=== PATIENT | male | born 1985 | race Caucasian/White ===

== ENCOUNTER 2020-08-25 16:19 | Inpatient (IN) ==
[2020-08-25 17:08] LABS: Basophils # 0.1 K/mcL (0.0-0.2); Basophils % 0.3 %; Eosinophils # 0.1 K/mcL (0.0-0.6); Eosinophils % 0.6 %; Hematocrit 45.9 % (37.5-50.1); Hemoglobin 14.8 g/dL (12.9-16.9); Immature Granulocytes % 0.5 % (0-4); Lymphocytes # 1.4 K/mcL (0.6-4.6); Lymphocytes % 8.8 %; Mean Corpuscular HGB Conc 32.2 g/dL (31.6-35.5); Mean Corpuscular Hemoglobin 28.7 pg (28.0-33.3); Mean Platelet Volume 12.4 fL (9.4-12.4); Monocytes # 0.9 K/mcL (0.0-1.3); Monocytes % 5.9 %; Neutrophils # 13.2 K/mcL (1.6-8.9); Platelet Count 237 K/mcL (140-400); Red Blood Count 5.16 M/mcL (4.19-5.50); Segmented Neutrophils % 83.9 %; White Blood Count 15.7 K/mcL (4.3-11.1)
[2020-08-25 17:23] LABS: INR 1.3; Prothrombin Time 14.5 Seconds (9.4-12.1)
[2020-08-25 17:26] LABS: Activated Partial Thrombo Time 26.5 Seconds (26.0-36.0)
[2020-08-25 18:35] LABS: VBG HCO3 30 mEq/L (21-27); VBG PCO2 54 mmHg (41-51); VBG PH 7.35 pH Units (7.32-7.42); VBG PO2 87 mmHg (25-50)
[2020-08-25 18:49] LABS: Alanine Aminotransferase 29 Units/L (7-52); Albumin 4.3 g/dL (3.5-5.7); Albumin/Globulin Ratio 1.3 (1.1-2.2); Alkaline Phosphatase 70 Units/L (34-104); Aspartate Amino Transferase 24 Units/L (13-39); BUN/Creatinine Ratio 11 (6-26); Bilirubin,Direct 0.2 mg/dL (0.0-0.2); Bilirubin,Indirect 0.7 mg/dL (0.0-1.0); Bilirubin,Total 0.9 mg/dL (0.3-1.0); Blood Urea Nitrogen 13 mg/dL (6-20); Calcium 9.2 mg/dL (8.6-10.3); Carbon Dioxide 28 mEq/L (23-29); Chloride 103 mEq/L (98-107); Globulin 3.3 g/dL (2.4-3.5); Glucose 124 mg/dL (70-105); Magnesium 2.1 mg/dL (1.6-2.6); Osmolality,Calculated 294 (280-300); Phosphorous 3.5 mg/dL (2.7-4.5); Potassium 3.9 mEq/L (3.5-5.1); Sodium 141 mEq/L (136-145); Total Protein 7.6 g/dL (6.4-8.9); eGFR For African Americans > 60 (> 60); eGFR For Non-African Americans > 60 (> 60)
[2020-08-25] MEDS ORDERED: *HR* Labetalol 20 MG/4 ML SYRINGE IVP ONE (18:50)
[2020-08-25 19:10] LABS: Bilirubin,Urine Negative (Negative); Blood,Urine Moderate (Negative); Clarity,Urine Clear (Clear); Color,Urine Yellow (Yellow); Glucose,Urine (UA) Normal (Normal); Hyaline Casts,Urine Many per lpf (None Seen); Ketones,Urine Negative (Negative); Leukocyte Esterase,Urine Negative (Negative); Mucus,Urine Few per lpf (None-Few); Nitrite,Urine Negative (Negative); PH,Urine 6.5 pH Units (5.0-8.0); Protein,Urine >=600 mg/dL (Neg-Trace); RBC,Urine 0-3 per hpf (0-3); Specific Gravity,Urine 1.028 (1.010-1.025); Squamous Epithelial Cell,Urine Few per hpf (None-Few); Urobilinogen,Urine Normal (Normal)
[2020-08-25] MEDS ORDERED: Perflutren Lipid Microsphere 1.3 ML in 0.9 % Sodium Chloride 8.7 ML IVP PRN (19:10)
[2020-08-25 19:34] LABS: Adenovirus Not Detected (Not Detect); Bordetella Pertussis Not Detected (Not Detect); Chlamydophila pneumoniae Not Detected (Not Detect); Coronavirus 229E Not Detected (Not Detect); Coronavirus HKU1 Not Detected (Not Detect); Coronavirus NL63 Not Detected (Not Detect); Coronavirus OC43 Not Detected (Not Detect); Human Metapneumovirus Not Detected (Not Detect); Human Rhinovirus/Enterovirus DETECTED (Not Detect); Influenza A Subtype 2009 H1 Not Detected (Not Detect); Influenza B Not Detected (Not Detect); Mycoplasma pneumoniae Not Detected (Not Detect); Parainfluenza Virus 1 Not Detected (Not Detect); Parainfluenza Virus 2 Not Detected (Not Detect); Parainfluenza Virus 3 Not Detected (Not Detect); Parainfluenza Virus 4 Not Detected (Not Detect); Respiratory Syncytial Virus Not Detected (Not Detect); SARS-CoV-2 Not Detected (Not Detect)
[2020-08-25] MEDS ORDERED: Naloxone 0.4 MG/ML INJ IVP PRN (20:31)
[2020-08-25] MEDS ORDERED: Ondansetron 4 MG/2 ML VIAL IVP PRN (20:31)
[2020-08-25] MEDS ORDERED: niCARdipine 20 MG/200 ML MLS IVC SCH (21:45)
[2020-08-25] MEDS ORDERED: Furosemide 40 MG/4 ML VIAL IVP ONE (22:33)
[2020-08-26] MEDS ORDERED: Aspirin Enteric Coated 325 MG Tablet PO ONE (01:32)
[2020-08-26 04:08] LABS: Basophils # 0.1 K/mcL (0.0-0.2); Basophils % 0.4 %; Eosinophils # 0.1 K/mcL (0.0-0.6); Eosinophils % 0.7 %; Hematocrit 42.2 % (37.5-50.1); Immature Granulocytes % 0.5 % (0-4); Lymphocytes # 1.5 K/mcL (0.6-4.6); Lymphocytes % 10.4 %; Mean Corpuscular Hemoglobin 28.1 pg (28.0-33.3); Mean Corpuscular Volume 90.6 fL (83.0-100.0); Mean Platelet Volume 11.6 fL (9.4-12.4); Monocytes # 1.2 K/mcL (0.0-1.3); Monocytes % 8.6 %; Neutrophils # 11.3 K/mcL (1.6-8.9); Platelet Count 234 K/mcL (140-400); Red Blood Count 4.66 M/mcL (4.19-5.50); Red Cell Distribution Width 14.7 % (11.5-14.5); Segmented Neutrophils % 79.4 %; White Blood Count 14.3 K/mcL (4.3-11.1)
[2020-08-26 04:09] LABS: Hemoglobin 13.1 g/dL (12.9-16.9)
[2020-08-26 04:15] LABS: INR 1.4; Prothrombin Time 15.9 Seconds (9.4-12.1)
[2020-08-26 04:30] LABS: Alanine Aminotransferase 21 Units/L (7-52); Albumin 3.6 g/dL (3.5-5.7); Albumin/Globulin Ratio 1.3 (1.1-2.2); Alkaline Phosphatase 54 Units/L (34-104); Aspartate Amino Transferase 20 Units/L (13-39); BUN/Creatinine Ratio 13 (6-26); Blood Urea Nitrogen 12 mg/dL (6-20); Calcium 8.6 mg/dL (8.6-10.3); Carbon Dioxide 28 mEq/L (23-29); Chloride 103 mEq/L (98-107); Chol/HDL Ratio 6.3 (0-4.9); Cholesterol 138 mg/dL (< 200); Globulin 2.7 g/dL (2.4-3.5); Glucose 107 mg/dL (70-105); HDL Cholesterol 22 mg/dL (40-59); LDL Cholesterol,Calculated 95 mg/dL (< 100); Magnesium 1.9 mg/dL (1.6-2.6); Osmolality,Calculated 290 (280-300); Potassium 3.7 mEq/L (3.5-5.1); Sodium 140 mEq/L (136-145); Total Protein 6.3 g/dL (6.4-8.9); Triglycerides 107 mg/dL (< 150); eGFR For African Americans > 60 (> 60); eGFR For Non-African Americans > 60 (> 60)
[2020-08-26] MEDS: *HR* Heparin 5,000 UNIT/ML VIAL SQ SCH ×3 (06:34→20:47)
[2020-08-26] MEDS: Aspirin Enteric Coated 81 MG Tablet PO SCH (07:58)
[2020-08-26] MEDS ORDERED: lisinopriL 10 MG TABLET PO SCH ×2 (09:00→21:00)
[2020-08-26 09:13] LABS: Amphetamine Screen,Urine Negative ng/mL (Cutoff=1000); Barbiturate Screen,Urine Negative ng/mL (Cutoff=200); Benzodiazepines Screen,Urine Negative ng/mL (Cutoff=200); Cannabinoid Screen,Urine Positive ng/mL (Cutoff = 50); Cocaine Screen,Urine Negative ng/mL (Cutoff= 300); Opiate Screen,Urine Negative ng/mL (Cutoff=300); Phencyclidine Screen,Urine Negative ng/mL (Cutoff=25)
[2020-08-26] MEDS ORDERED: lisinopriL 10 MG TABLET PO ONE (10:25)
[2020-08-26] MEDS ORDERED: amLODIPine 5 MG TABLET PO SCH (10:30)
[2020-08-26] MEDS: Furosemide 40 MG/4 ML VIAL IVP SCH ×2 (11:49→20:47)
[2020-08-26] MEDS: hydrALAZINE 25 MG TABLET PO SCH ×2 (11:50→15:22)
[2020-08-27] MEDS: hydrALAZINE 25 MG TABLET PO SCH ×3 (01:02→17:37)
[2020-08-27] MEDS: *HR* Heparin 5,000 UNIT/ML VIAL SQ SCH ×3 (06:53→21:37)
[2020-08-27] MEDS: Furosemide 40 MG/4 ML VIAL IVP SCH ×2 (08:22→21:37)
[2020-08-27] MEDS: Aspirin Enteric Coated 81 MG Tablet PO SCH (08:22)
[2020-08-27 08:40] LABS: Basophils # 0.1 K/mcL (0.0-0.2); Basophils % 0.4 %; Eosinophils # 0.3 K/mcL (0.0-0.6); Hematocrit 41.7 % (37.5-50.1); Immature Granulocytes % 0.5 % (0-4); Lymphocytes # 1.4 K/mcL (0.6-4.6); Lymphocytes % 11.7 %; Mean Corpuscular HGB Conc 31.2 g/dL (31.6-35.5); Mean Corpuscular Hemoglobin 28.2 pg (28.0-33.3); Mean Corpuscular Volume 90.5 fL (83.0-100.0); Mean Platelet Volume 11.8 fL (9.4-12.4); Monocytes # 1.1 K/mcL (0.0-1.3); Monocytes % 8.6 %; Neutrophils # 9.4 K/mcL (1.6-8.9); Platelet Count 223 K/mcL (140-400); Red Blood Count 4.61 M/mcL (4.19-5.50); Segmented Neutrophils % 76.8 %; White Blood Count 12.3 K/mcL (4.3-11.1)
[2020-08-27 08:52] LABS: BUN/Creatinine Ratio 13 (6-26); Blood Urea Nitrogen 12 mg/dL (6-20); Carbon Dioxide 33 mEq/L (23-29); Chloride 102 mEq/L (98-107); Glucose 104 mg/dL (70-105); Osmolality,Calculated 288 (280-300); Potassium 3.6 mEq/L (3.5-5.1); Sodium 139 mEq/L (136-145); eGFR For African Americans > 60 (> 60); eGFR For Non-African Americans > 60 (> 60)
[2020-08-27 10:13] LABS: Bilirubin,Urine Negative (Negative); Blood,Urine Negative (Negative); Clarity,Urine Clear (Clear); Color,Urine Colorless (Yellow); Glucose,Urine (UA) Normal (Normal); Ketones,Urine Negative (Negative); Leukocyte Esterase,Urine Negative (Negative); Nitrite,Urine Negative (Negative); Protein,Urine Negative (Neg-Trace); Specific Gravity,Urine 1.006 (1.010-1.025); Urobilinogen,Urine Normal (Normal)
[2020-08-27] MEDS: lisinopriL 20 MG TABLET PO SCH ×2 (10:24→21:37)
[2020-08-27] MEDS ORDERED: hydrALAZINE 25 MG TABLET PO ONE (11:18)
[2020-08-27] MEDS: cloNIDine HCL 0.1 MG TABLET PO SCH ×2 (12:34→21:37)
[2020-08-28] MEDS: hydrALAZINE 25 MG TABLET PO SCH ×3 (00:42→15:56)
[2020-08-28 04:43] LABS: Basophils # 0.1 K/mcL (0.0-0.2); Basophils % 0.4 %; Eosinophils # 0.5 K/mcL (0.0-0.6); Eosinophils % 3.6 %; Hemoglobin 13.4 g/dL (12.9-16.9); Immature Granulocytes % 0.6 % (0-4); Lymphocytes # 1.8 K/mcL (0.6-4.6); Lymphocytes % 13.2 %; Mean Corpuscular HGB Conc 31.2 g/dL (31.6-35.5); Mean Corpuscular Hemoglobin 28.5 pg (28.0-33.3); Mean Corpuscular Volume 91.5 fL (83.0-100.0); Mean Platelet Volume 11.8 fL (9.4-12.4); Monocytes # 1.3 K/mcL (0.0-1.3); Neutrophils # 10.2 K/mcL (1.6-8.9); Platelet Count 262 K/mcL (140-400); Red Cell Distribution Width 15.2 % (11.5-14.5); Segmented Neutrophils % 73.2 %
[2020-08-28 05:01] LABS: BUN/Creatinine Ratio 13 (6-26); Blood Urea Nitrogen 13 mg/dL (6-20); Calcium 9.1 mg/dL (8.6-10.3); Carbon Dioxide 34 mEq/L (23-29); Chloride 102 mEq/L (98-107); Glucose 104 mg/dL (70-105); Osmolality,Calculated 292 (280-300); Sodium 141 mEq/L (136-145); eGFR For African Americans > 60 (> 60); eGFR For Non-African Americans > 60 (> 60)
[2020-08-28] MEDS: *HR* Heparin 5,000 UNIT/ML VIAL SQ SCH ×3 (05:45→20:51)
[2020-08-28] MEDS: Aspirin Enteric Coated 81 MG Tablet PO SCH (09:02)
[2020-08-28] MEDS: lisinopriL 20 MG TABLET PO SCH ×2 (09:02→20:50)
[2020-08-28] MEDS: Furosemide 40 MG/4 ML VIAL IVP SCH ×2 (09:02→20:52)
[2020-08-28] MEDS: cloNIDine HCL 0.1 MG TABLET PO SCH ×2 (09:02→20:50)
[2020-08-29] MEDS: hydrALAZINE 25 MG TABLET PO SCH ×3 (00:22→15:12)
[2020-08-29 02:03] LABS: Basophils # 0.1 K/mcL (0.0-0.2); Basophils % 0.4 %; Eosinophils # 0.5 K/mcL (0.0-0.6); Eosinophils % 3.8 %; Hematocrit 41.8 % (37.5-50.1); Hemoglobin 12.9 g/dL (12.9-16.9); Immature Granulocytes % 0.4 % (0-4); Lymphocytes # 1.8 K/mcL (0.6-4.6); Lymphocytes % 14.4 %; Mean Corpuscular HGB Conc 30.9 g/dL (31.6-35.5); Mean Corpuscular Hemoglobin 28.2 pg (28.0-33.3); Mean Corpuscular Volume 91.3 fL (83.0-100.0); Mean Platelet Volume 11.4 fL (9.4-12.4); Monocytes # 1.2 K/mcL (0.0-1.3); Monocytes % 9.9 %; Neutrophils # 8.6 K/mcL (1.6-8.9); Platelet Count 248 K/mcL (140-400); Red Blood Count 4.58 M/mcL (4.19-5.50); Segmented Neutrophils % 71.1 %; White Blood Count 12.1 K/mcL (4.3-11.1)
[2020-08-29 02:18] LABS: Alanine Aminotransferase 15 Units/L (7-52); Albumin 3.5 g/dL (3.5-5.7); Albumin/Globulin Ratio 1.3 (1.1-2.2); Alkaline Phosphatase 51 Units/L (34-104); Aspartate Amino Transferase 13 Units/L (13-39); BUN/Creatinine Ratio 15 (6-26); Bilirubin,Total 0.6 mg/dL (0.3-1.0); Blood Urea Nitrogen 14 mg/dL (6-20); Calcium 8.8 mg/dL (8.6-10.3); Carbon Dioxide 33 mEq/L (23-29); Chloride 100 mEq/L (98-107); Globulin 2.8 g/dL (2.4-3.5); Glucose 97 mg/dL (70-105); Osmolality,Calculated 288 (280-300); Potassium 3.9 mEq/L (3.5-5.1); Sodium 139 mEq/L (136-145); Total Protein 6.3 g/dL (6.4-8.9); eGFR For African Americans > 60 (> 60); eGFR For Non-African Americans > 60 (> 60)
[2020-08-29 05:49] LABS: ABG Base Excess 6 mEq/L (-2 to 3); ABG HCO3 33 mEq/L (21-27); ABG Oxygen Saturation 89 % (95-98); ABG PCO2 54 mmHg (35-45); ABG PO2 58 mmHg (85-104); ABG TCO2 35 mEq/L (20-26)
[2020-08-29] MEDS: *HR* Heparin 5,000 UNIT/ML VIAL SQ SCH ×3 (08:33→20:27)
[2020-08-29] MEDS: Furosemide 40 MG/4 ML VIAL IVP SCH ×2 (08:33→20:27)
[2020-08-29] MEDS: Aspirin Enteric Coated 81 MG Tablet PO SCH (08:34)
[2020-08-29] MEDS: cloNIDine HCL 0.1 MG TABLET PO SCH ×2 (08:34→20:26)
[2020-08-29] MEDS: lisinopriL 20 MG TABLET PO SCH ×2 (08:34→20:27)
[2020-08-30] MEDS: hydrALAZINE 25 MG TABLET PO SCH ×4 (01:29→23:18)
[2020-08-30 03:51] LABS: Basophils # 0.1 K/mcL (0.0-0.2); Basophils % 0.5 %; Eosinophils # 0.4 K/mcL (0.0-0.6); Hematocrit 41.6 % (37.5-50.1); Hemoglobin 12.7 g/dL (12.9-16.9); Immature Granulocytes % 0.5 % (0-4); Lymphocytes % 18.3 %; Mean Corpuscular HGB Conc 30.5 g/dL (31.6-35.5); Mean Corpuscular Hemoglobin 27.4 pg (28.0-33.3); Mean Corpuscular Volume 89.8 fL (83.0-100.0); Mean Platelet Volume 11.8 fL (9.4-12.4); Monocytes # 1.3 K/mcL (0.0-1.3); Monocytes % 11.4 %; Neutrophils # 7.2 K/mcL (1.6-8.9); Platelet Count 246 K/mcL (140-400); Red Blood Count 4.63 M/mcL (4.19-5.50); Red Cell Distribution Width 14.9 % (11.5-14.5); Segmented Neutrophils % 65.3 %; White Blood Count 11.1 K/mcL (4.3-11.1)
[2020-08-30 04:11] LABS: BUN/Creatinine Ratio 13 (6-26); Blood Urea Nitrogen 14 mg/dL (6-20); Calcium 8.8 mg/dL (8.6-10.3); Carbon Dioxide 33 mEq/L (23-29); Chloride 98 mEq/L (98-107); Glucose 108 mg/dL (70-105); Osmolality,Calculated 281 (280-300); Potassium 3.8 mEq/L (3.5-5.1); Sodium 135 mEq/L (136-145); eGFR For African Americans > 60 (> 60); eGFR For Non-African Americans > 60 (> 60)
[2020-08-30] MEDS: *HR* Heparin 5,000 UNIT/ML VIAL SQ SCH ×3 (05:59→20:08)
[2020-08-30] MEDS: Furosemide 40 MG/4 ML VIAL IVP SCH (08:41)
[2020-08-30] MEDS: Aspirin Enteric Coated 81 MG Tablet PO SCH (08:41)
[2020-08-30] MEDS: lisinopriL 20 MG TABLET PO SCH ×2 (08:41→20:08)
[2020-08-30] MEDS: cloNIDine HCL 0.1 MG TABLET PO SCH ×2 (08:41→20:13)
[2020-08-31] MEDS: *HR* Heparin 5,000 UNIT/ML VIAL SQ SCH ×3 (06:15→21:34)
[2020-08-31] MEDS: hydrALAZINE 25 MG TABLET PO SCH ×2 (07:46→15:01)
[2020-08-31] MEDS: cloNIDine HCL 0.1 MG TABLET PO SCH (07:46)
[2020-08-31] MEDS: lisinopriL 20 MG TABLET PO SCH ×2 (07:46→21:34)
[2020-08-31] MEDS: Aspirin Enteric Coated 81 MG Tablet PO SCH (07:46)
[2020-08-31] MEDS: Furosemide 40 MG/4 ML VIAL IVP SCH ×2 (08:37→17:28)
[2020-08-31] MEDS ORDERED: Furosemide 40 MG/4 ML VIAL IVP SCH (09:00)
[2020-08-31 10:00] LABS: Basophils # 0.1 K/mcL (0.0-0.2); Basophils % 0.6 %; Eosinophils # 0.4 K/mcL (0.0-0.6); Eosinophils % 3.6 %; Hematocrit 44.1 % (37.5-50.1); Hemoglobin 13.4 g/dL (12.9-16.9); Immature Granulocytes % 0.5 % (0-4); Lymphocytes # 1.3 K/mcL (0.6-4.6); Lymphocytes % 10.8 %; Mean Corpuscular HGB Conc 30.4 g/dL (31.6-35.5); Mean Corpuscular Hemoglobin 27.6 pg (28.0-33.3); Mean Corpuscular Volume 90.7 fL (83.0-100.0); Mean Platelet Volume 11.7 fL (9.4-12.4); Monocytes # 0.9 K/mcL (0.0-1.3); Monocytes % 7.8 %; Neutrophils # 9.2 K/mcL (1.6-8.9); Platelet Count 247 K/mcL (140-400); Red Blood Count 4.86 M/mcL (4.19-5.50); Red Cell Distribution Width 14.9 % (11.5-14.5); Segmented Neutrophils % 76.7 %; White Blood Count 11.9 K/mcL (4.3-11.1)
[2020-08-31 10:19] LABS: BUN/Creatinine Ratio 14 (6-26); Blood Urea Nitrogen 14 mg/dL (6-20); Calcium 8.8 mg/dL (8.6-10.3); Carbon Dioxide 31 mEq/L (23-29); Chloride 101 mEq/L (98-107); Glucose 105 mg/dL (70-105); Osmolality,Calculated 289 (280-300); Potassium 4.2 mEq/L (3.5-5.1); Sodium 139 mEq/L (136-145); eGFR For African Americans > 60 (> 60); eGFR For Non-African Americans > 60 (> 60)
[2020-08-31] MEDS ORDERED: 0.9 % Sodium Chloride 2,000 ML ONE (13:27)
[2020-08-31] MEDS ORDERED: Nitroglycerin 1,000 MCG/10 ML VIAL IV ONE (13:27)
[2020-08-31] MEDS ORDERED: ISOVUE-370 200 ML INFUS..BTL ONE (13:27)
[2020-08-31] MEDS ORDERED: *HR* Heparin 10,000 UNIT/10 ML VIAL ONE (13:27)
[2020-08-31] MEDS ORDERED: Heparin 1,000 UNITS/500 mL 500 ML ONE (13:27)
[2020-08-31] MEDS ORDERED: *HR* FentaNYL (PF) 100 MCG/2 ML VIAL ONE (13:53)
[2020-08-31] MEDS ORDERED: *HR* Midazolam HCl 2 MG/2 ML VIAL ONE (13:53)
[2020-08-31] MEDS: Spironolactone 25 MG TABLET PO SCH (14:59)
[2020-08-31] MEDS: Piperacillin/Tazobactam 3.375 GM in 0.9 % Sodium Chloride Mini Bag 100 ML IVPB SCH (15:06)
[2020-08-31] MEDS: carvediloL 6.25 MG TABLET PO SCH (17:28)
[2020-08-31] MEDS ORDERED: Doxycycline 100 MG in 0.9 % Sodium Chloride Mini Bag 100 ML IVPB SCH (18:00)
[2020-08-31] MEDS: Doxycycline 100 MG in 0.9 % Sodium Chloride Mini Bag 100 ML IVPB SCH (19:58)
[2020-09-01] MEDS: hydrALAZINE 25 MG TABLET PO SCH ×2 (00:03→11:09)
[2020-09-01] MEDS: Piperacillin/Tazobactam 3.375 GM in 0.9 % Sodium Chloride Mini Bag 100 ML IVPB SCH ×2 (00:03→11:07)
[2020-09-01] MEDS ORDERED: *HR* LORazepam 2 MG/ML VIAL IVP ONE (01:42)
[2020-09-01] MEDS: *HR* Heparin 5,000 UNIT/ML VIAL SQ SCH ×2 (05:01→13:17)
[2020-09-01] MEDS ORDERED: Spironolactone 25 MG TABLET PO SCH (09:00)
[2020-09-01 10:36] LABS: Basophils # 0.1 K/mcL (0.0-0.2); Basophils % 0.5 %; Eosinophils # 0.4 K/mcL (0.0-0.6); Eosinophils % 3.7 %; Hematocrit 44.3 % (37.5-50.1); Hemoglobin 13.2 g/dL (12.9-16.9); Immature Granulocytes % 0.4 % (0-4); Lymphocytes # 1.1 K/mcL (0.6-4.6); Lymphocytes % 10.3 %; Mean Corpuscular HGB Conc 29.8 g/dL (31.6-35.5); Mean Corpuscular Hemoglobin 27.4 pg (28.0-33.3); Mean Corpuscular Volume 92.1 fL (83.0-100.0); Mean Platelet Volume 11.8 fL (9.4-12.4); Monocytes % 9.1 %; Neutrophils # 8.3 K/mcL (1.6-8.9); Platelet Count 227 K/mcL (140-400); Red Blood Count 4.81 M/mcL (4.19-5.50); White Blood Count 10.9 K/mcL (4.3-11.1)
[2020-09-01 10:54] LABS: BUN/Creatinine Ratio 15 (6-26); Blood Urea Nitrogen 14 mg/dL (6-20); Carbon Dioxide 32 mEq/L (23-29); Chloride 102 mEq/L (98-107); Glucose 94 mg/dL (70-105); Osmolality,Calculated 286 (280-300); Potassium 4.3 mEq/L (3.5-5.1); Sodium 138 mEq/L (136-145); eGFR For African Americans > 60 (> 60); eGFR For Non-African Americans > 60 (> 60)
[2020-09-01] MEDS: Doxycycline 100 MG in 0.9 % Sodium Chloride Mini Bag 100 ML IVPB SCH (11:07)
[2020-09-01] MEDS: carvediloL 6.25 MG TABLET PO SCH (11:08)
[2020-09-01] MEDS: lisinopriL 20 MG TABLET PO SCH (11:09)
[2020-09-01] MEDS: Spironolactone 25 MG TABLET PO SCH (11:09)
[2020-09-01] MEDS: Furosemide 40 MG/4 ML VIAL IVP SCH (11:10)
[2020-09-01 14:38] VITALS: BP 121/69
[2020-09-01] MEDS ORDERED: FLU Vac QV 20-21 (6Month+)/PF 0.5 ML SYRINGE IM ONE (14:45)
[2020-09-01] MEDS ORDERED: Doxycycline 100 MG CAPSULE PO SCH (21:00)
== END 2020-09-01 17:24 | disposition home or self-care (01) | DRG 192 ==
LOC: EMEROOARM 16:19 → CDU 16:19 → SUATTDRO 20:55 → CDU 21:12 → 3ANU 08-28 03:40
PROVIDERS: ADMIT Internal Medicine; ATTEND Internal Medicine

== ENCOUNTER 2021-03-06 20:52 | Inpatient (IN) ==
[2021-03-06] MEDS ORDERED: 0.9 % Sodium Chloride 1,000 ML IVC ONE (22:33)
[2021-03-06 23:02] LABS: Basophils # 0.1 K/mcL (0.0-0.2); Basophils % 0.5 %; Eosinophils # 0.2 K/mcL (0.0-0.6); Eosinophils % 2.2 %; Hematocrit 42.4 % (37.5-50.1); Hemoglobin 12.1 g/dL (12.9-16.9); Immature Granulocytes % 0.9 % (0-4); Lymphocytes # 0.7 K/mcL (0.6-4.6); Lymphocytes % 6.2 %; Mean Corpuscular HGB Conc 28.5 g/dL (31.6-35.5); Mean Corpuscular Hemoglobin 24.8 pg (28.0-33.3); Mean Corpuscular Volume 87.1 fL (83.0-100.0); Mean Platelet Volume 11.9 fL (9.4-12.4); Nucleated Red Blood Cells 0.2 /100 WBC (0); Platelet Count 210 K/mcL (140-400); Red Blood Count 4.87 M/mcL (4.19-5.50); Red Cell Distribution Width 17.5 % (11.5-14.5); Segmented Neutrophils % 81.2 %
[2021-03-06 23:04] LABS: Neutrophils # 8.9 K/mcL (1.6-8.9)
[2021-03-06 23:21] LABS: BUN/Creatinine Ratio 16 (6-26); Blood Urea Nitrogen 13 mg/dL (6-20); Calcium 8.3 mg/dL (8.6-10.3); Carbon Dioxide 33 mEq/L (23-29); Chloride 101 mEq/L (98-107); Glucose 109 mg/dL (70-105); Osmolality,Calculated 289 (280-300); Potassium 4.5 mEq/L (3.5-5.1); Sodium 139 mEq/L (136-145); eGFR For African Americans > 60 (> 60); eGFR For Non-African Americans > 60 (> 60)
[2021-03-06 23:25] LABS: Hypochromasia Present (Not Present)
[2021-03-06 23:27] LABS: Troponin I 0.04 ng/mL (< 0.04)
[2021-03-06] MEDS ORDERED: Aspirin 81 MG TAB.CHEW PO ONE (23:37)
[2021-03-06 23:55] LABS: Bacteria,Urine Few per hpf (None-Few); Bilirubin,Urine Negative (Negative); Blood,Urine Negative (Negative); Clarity,Urine Clear (Clear); Color,Urine Light-Yellow (Yellow); Glucose,Urine (UA) Normal (Normal); Ketones,Urine Negative (Negative); Leukocyte Esterase,Urine Small (Negative); Mucus,Urine Few per lpf (None-Few); Nitrite,Urine Negative (Negative); PH,Urine 5.5 pH Units (5.0-8.0); Protein,Urine Trace mg/dL (Neg-Trace); RBC,Urine 0-3 per hpf (0-3); Specific Gravity,Urine 1.021 (1.010-1.025); Squamous Epithelial Cell,Urine Few per hpf (None-Few); Urobilinogen,Urine Normal (Normal)
[2021-03-07] MEDS ORDERED: Vancomycin 2,000 MG/520 ML IV.SOLN IVPB ONE (00:12)
[2021-03-07] MEDS ORDERED: Piperacillin/Tazobactam 3.375 GM in Water for inj. (sterile) 20 ML IVP ONE (00:12)
[2021-03-07] MEDS ORDERED: Furosemide 40 MG/4 ML VIAL IVP ONE (00:18)
[2021-03-07] MEDS ORDERED: Naloxone 0.4 MG/ML INJ IVP PRN (02:09)
[2021-03-07] MEDS ORDERED: Ondansetron ODT 4 MG TAB.RAPDIS SL PRN (02:09)
[2021-03-07] MEDS ORDERED: Perflutren Lipid Microsphere 1.3 ML in 0.9 % Sodium Chloride 8.7 ML IVP PRN (02:12)
[2021-03-07] MEDS: Acetaminophen 325 MG TABLET PO PRN (04:19)
[2021-03-07] MEDS: *HR* Enoxaparin 40 MG/0.4 ML SYRINGE SQ SCH (06:03)
[2021-03-07 06:20] LABS: Basophils % 0.3 %; Eosinophils # 0.1 K/mcL (0.0-0.6); Eosinophils % 1.2 %; Hematocrit 41.1 % (37.5-50.1); Hemoglobin 12.1 g/dL (12.9-16.9); Immature Granulocytes % 0.8 % (0-4); Lymphocytes # 0.5 K/mcL (0.6-4.6); Lymphocytes % 4.3 %; Mean Corpuscular HGB Conc 29.4 g/dL (31.6-35.5); Mean Corpuscular Hemoglobin 25.5 pg (28.0-33.3); Mean Corpuscular Volume 86.7 fL (83.0-100.0); Mean Platelet Volume 11.4 fL (9.4-12.4); Monocytes # 0.9 K/mcL (0.0-1.3); Monocytes % 7.8 %; Neutrophils # 10.3 K/mcL (1.6-8.9); Platelet Count 191 K/mcL (140-400); Red Blood Count 4.74 M/mcL (4.19-5.50); Red Cell Distribution Width 17.4 % (11.5-14.5); Segmented Neutrophils % 85.6 %
[2021-03-07 06:27] LABS: INR 1.4; Prothrombin Time 16.4 Seconds (9.4-12.1)
[2021-03-07 06:42] LABS: Alanine Aminotransferase 14 Units/L (7-52); Albumin 2.9 g/dL (3.5-5.7); Alkaline Phosphatase 56 Units/L (34-104); Aspartate Amino Transferase 11 Units/L (13-39); BUN/Creatinine Ratio 15 (6-26); Bilirubin,Total 0.6 mg/dL (0.3-1.0); Blood Urea Nitrogen 13 mg/dL (6-20); Calcium 8.4 mg/dL (8.6-10.3); Carbon Dioxide 33 mEq/L (23-29); Chloride 101 mEq/L (98-107); Glucose 166 mg/dL (70-105); Magnesium 1.8 mg/dL (1.6-2.6); Osmolality,Calculated 292 (280-300); Potassium 4.2 mEq/L (3.5-5.1); Sodium 139 mEq/L (136-145); Total Protein 5.9 g/dL (6.4-8.9); eGFR For African Americans > 60 (> 60); eGFR For Non-African Americans > 60 (> 60)
[2021-03-07 06:49] LABS: Estimated Average Glucose 143 mg/dl; Hemoglobin A1C 6.6 %
[2021-03-07 06:54] LABS: Thyroid Stimulating Hormone 1.989 mcIU/mL (0.340-5.600)
[2021-03-07] MEDS: hydrALAZINE 25 MG TABLET PO SCH ×2 (08:39→16:59)
[2021-03-07] MEDS: carvediloL 6.25 MG TABLET PO SCH ×2 (08:40→16:59)
[2021-03-07] MEDS: Furosemide 40 MG/4 ML VIAL IVP SCH ×2 (08:40→20:19)
[2021-03-07] MEDS: Piperacillin/Tazobactam 3.375 GM in 0.9 % Sodium Chloride Mini Bag 100 ML IVPB SCH ×2 (08:41→16:59)
[2021-03-07] MEDS ORDERED: lisinopriL 20 MG TABLET PO SCH (09:00)
[2021-03-07] MEDS ORDERED: Spironolactone 25 MG TABLET PO SCH (09:00)
[2021-03-07] MEDS ORDERED: *HR* Labetalol 20 MG/4 ML SYRINGE IVP ONE ×3 (09:39→18:34)
[2021-03-07] MEDS ORDERED: lisinopriL 20 MG TABLET PO ONE (09:41)
[2021-03-07] MEDS: Vancomycin 2,000 MG/520 ML IV.SOLN IVPB SCH ×2 (10:42→18:17)
[2021-03-08] MEDS: Piperacillin/Tazobactam 3.375 GM in 0.9 % Sodium Chloride Mini Bag 100 ML IVPB SCH ×3 (01:36→15:39)
[2021-03-08] MEDS: hydrALAZINE 25 MG TABLET PO SCH ×3 (01:36→15:40)
[2021-03-08] MEDS: Vancomycin 2,000 MG/520 ML IV.SOLN IVPB SCH ×3 (02:22→12:14)
[2021-03-08] MEDS: *HR* Enoxaparin 40 MG/0.4 ML SYRINGE SQ SCH (05:51)
[2021-03-08] MEDS: carvediloL 6.25 MG TABLET PO SCH (06:26)
[2021-03-08] MEDS ORDERED: Isovue-370 500 ML BOTTLE IVP ONE (07:33)
[2021-03-08] MEDS: lisinopriL 20 MG TABLET PO SCH (08:34)
[2021-03-08] MEDS: Furosemide 40 MG/4 ML VIAL IVP SCH ×2 (08:34→22:18)
[2021-03-08] MEDS: hydroCHLOROthiazide 25 MG TABLET PO SCH (08:35)
[2021-03-08] MEDS ORDERED: *HR* Heparin 5,000 UNIT/ML VIAL IVP PRN ×3 (08:49→14:01)
[2021-03-08] MEDS ORDERED: *HR* Heparin 5,000 UNIT/ML VIAL IVP ONE ×2 (08:49→14:01)
[2021-03-08] MEDS ORDERED: Heparin 25,000UNIT/250ML 1/2NS 25,000 UNIT/250 ML IV.SOLN IVC SCH (09:00)
[2021-03-08] MEDS ORDERED: Spironolactone 25 MG TABLET PO SCH (09:00)
[2021-03-08 09:57] LABS: Basophils % 0.2 %; Eosinophils % 0.2 %
[2021-03-08 09:58] LABS: Hematocrit 44.4 % (37.5-50.1); Hemoglobin 12.5 g/dL (12.9-16.9); Immature Granulocytes % 0.4 % (0-4); Lymphocytes # 0.4 K/mcL (0.6-4.6); Lymphocytes % 3.4 %; Mean Corpuscular HGB Conc 28.2 g/dL (31.6-35.5); Mean Corpuscular Hemoglobin 25.3 pg (28.0-33.3); Mean Corpuscular Volume 89.7 fL (83.0-100.0); Mean Platelet Volume 12.5 fL (9.4-12.4); Monocytes # 0.5 K/mcL (0.0-1.3); Monocytes % 4.3 %; Neutrophils # 9.9 K/mcL (1.6-8.9); Nucleated Red Blood Cells 0.2 /100 WBC (0); Platelet Count 219 K/mcL (140-400); Red Blood Count 4.95 M/mcL (4.19-5.50); Red Cell Distribution Width 17.6 % (11.5-14.5); Segmented Neutrophils % 91.5 %; White Blood Count 10.8 K/mcL (4.3-11.1)
[2021-03-08 10:06] LABS: INR 1.3; Prothrombin Time 15.1 Seconds (9.4-12.1)
[2021-03-08 10:07] LABS: Heparin anti-factor XA UFH 0.07 IU/mL (0.30-0.70)
[2021-03-08 10:16] LABS: BUN/Creatinine Ratio 11 (6-26); Blood Urea Nitrogen 10 mg/dL (6-20); Calcium 8.5 mg/dL (8.6-10.3); Carbon Dioxide 39 mEq/L (23-29); Chloride 99 mEq/L (98-107); Glucose 139 mg/dL (70-105); Osmolality,Calculated 293 (280-300); Phosphorous 3.5 mg/dL (2.7-4.5); Potassium 4.7 mEq/L (3.5-5.1); Sodium 141 mEq/L (136-145); Vancomycin,Trough 16 mcg/mL (5-10); eGFR For African Americans > 60 (> 60); eGFR For Non-African Americans > 60 (> 60)
[2021-03-08] MEDS ORDERED: Furosemide 40 MG/4 ML VIAL IVP ONE (10:21)
[2021-03-08 10:50] LABS: Anisocytosis 1+ (Not Present); Stomatocytes 1+ (Not Present)
[2021-03-08 10:52] LABS: Platelet Estimate Increased (Normal)
[2021-03-08] MEDS ORDERED: Furosemide 40 MG/4 ML VIAL ONE (11:13)
[2021-03-08] MEDS ORDERED: carvediloL 25 MG TABLET PO ONE (11:44)
[2021-03-08] MEDS: cloNIDine HCL 0.1 MG TABLET PO SCH ×3 (12:08→22:18)
[2021-03-08] MEDS: Heparin 25,000UNIT/250ML 1/2NS 25,000 UNIT/250 ML IV.SOLN IVC SCH (14:26)
[2021-03-08] MEDS ORDERED: D5% in Water 1,000 ML IVC PRN (14:33)
[2021-03-08] MEDS ORDERED: Dextrose Gel 15 GM/37.5 ML TUBE PO PRN ×2 (14:33)
[2021-03-08] MEDS ORDERED: *HR* Dextrose 50 % in Water (Vial) 50 ML VIAL IVP PRN (14:33)
[2021-03-08] MEDS: carvediloL 25 MG TABLET PO SCH (15:40)
[2021-03-08] MEDS: Insulin LISPRO 300 UNITS/3 ML VIAL SUBQ SCH (16:20)
[2021-03-08] MEDS ORDERED: Ipratropium 1 PUFF INHALER IH PRN (16:20)
[2021-03-08] MEDS ORDERED: carvediloL 6.25 MG TABLET PO SCH (17:00)
[2021-03-08] MEDS ORDERED: *HR* Enoxaparin 30 MG/0.3 ML SYRINGE SQ SCH (18:00)
[2021-03-08] MEDS: *HR* Heparin 5,000 UNIT/ML VIAL IVP PRN (22:19)
[2021-03-09] MEDS: Vancomycin 2,000 MG/520 ML IV.SOLN IVPB SCH ×2 (01:17→11:29)
[2021-03-09] MEDS: hydrALAZINE 25 MG TABLET PO SCH ×3 (01:19→15:58)
[2021-03-09] MEDS: Piperacillin/Tazobactam 3.375 GM in 0.9 % Sodium Chloride Mini Bag 100 ML IVPB SCH ×3 (01:20→15:58)
[2021-03-09] MEDS: Heparin 25,000UNIT/250ML 1/2NS 25,000 UNIT/250 ML IV.SOLN IVC SCH ×2 (01:45→12:20)
[2021-03-09 03:37] LABS: Basophils % 0.2 %; Eosinophils # 0.1 K/mcL (0.0-0.6); Eosinophils % 0.3 %; Hematocrit 42.5 % (37.5-50.1); Hemoglobin 12.1 g/dL (12.9-16.9); Immature Granulocytes % 0.6 % (0-4); Lymphocytes # 0.7 K/mcL (0.6-4.6); Lymphocytes % 4.5 %; Mean Corpuscular HGB Conc 28.5 g/dL (31.6-35.5); Mean Corpuscular Hemoglobin 25.2 pg (28.0-33.3); Mean Corpuscular Volume 88.4 fL (83.0-100.0); Mean Platelet Volume 11.4 fL (9.4-12.4); Monocytes # 1.1 K/mcL (0.0-1.3); Monocytes % 7.6 %; Platelet Count 207 K/mcL (140-400); Red Blood Count 4.81 M/mcL (4.19-5.50); Red Cell Distribution Width 17.5 % (11.5-14.5); Segmented Neutrophils % 86.8 %
[2021-03-09 03:50] LABS: BUN/Creatinine Ratio 15 (6-26); Blood Urea Nitrogen 12 mg/dL (6-20); Calcium 8.3 mg/dL (8.6-10.3); Carbon Dioxide 38 mEq/L (23-29); Chloride 97 mEq/L (98-107); Glucose 181 mg/dL (70-105); Magnesium 1.9 mg/dL (1.6-2.6); Osmolality,Calculated 292 (280-300); Phosphorous 2.8 mg/dL (2.7-4.5); Potassium 4.3 mEq/L (3.5-5.1); Sodium 139 mEq/L (136-145); eGFR For African Americans > 60 (> 60); eGFR For Non-African Americans > 60 (> 60)
[2021-03-09 04:46] LABS: Hypochromasia Present (Not Present); Platelet Estimate Normal (Normal)
[2021-03-09] MEDS: *HR* Heparin 5,000 UNIT/ML VIAL IVP PRN (06:45)
[2021-03-09] MEDS: Insulin LISPRO 300 UNITS/3 ML VIAL SUBQ SCH ×3 (07:27→16:44)
[2021-03-09] MEDS: hydroCHLOROthiazide 25 MG TABLET PO SCH (08:07)
[2021-03-09] MEDS: cloNIDine HCL 0.1 MG TABLET PO SCH ×3 (08:08→20:10)
[2021-03-09] MEDS: carvediloL 25 MG TABLET PO SCH ×2 (08:08→15:58)
[2021-03-09] MEDS: lisinopriL 20 MG TABLET PO SCH (08:08)
[2021-03-09] MEDS: Furosemide 40 MG/4 ML VIAL IVP SCH ×2 (08:08→20:09)
[2021-03-09] MEDS ORDERED: *HR* Rivaroxaban 15 MG TABLET PO SCH (12:45)
[2021-03-09 13:38] LABS: Albumin 2.9 g/dL (3.5-5.7); Bilirubin,Direct 0.1 mg/dL (0.0-0.2); Bilirubin,Indirect 0.3 mg/dL (0.0-1.0); Bilirubin,Total 0.4 mg/dL (0.3-1.0); Globulin 2.9 g/dL (2.4-3.5); Total Protein 5.8 g/dL (6.4-8.9)
[2021-03-09] MEDS ORDERED: Dexamethasone Sodium Phos/PF 10 MG/ML VIAL IVP ONE (14:57)
[2021-03-09] MEDS ORDERED: Remdesivir 200 MG in 0.9 % Sodium Chloride 100 ML IVPB ONE (17:00)
[2021-03-10] MEDS: Piperacillin/Tazobactam 3.375 GM in 0.9 % Sodium Chloride Mini Bag 100 ML IVPB SCH ×2 (00:43→08:24)
[2021-03-10] MEDS: Vancomycin 2,000 MG/520 ML IV.SOLN IVPB SCH (00:44)
[2021-03-10] MEDS: hydrALAZINE 25 MG TABLET PO SCH ×3 (00:45→17:14)
[2021-03-10] MEDS: Acetaminophen 325 MG TABLET PO PRN (05:02)
[2021-03-10 06:35] LABS: Basophils % 0.1 %; Hematocrit 44.9 % (37.5-50.1); Immature Granulocytes % 0.6 % (0-4); Lymphocytes # 0.6 K/mcL (0.6-4.6); Lymphocytes % 3.9 %; Mean Corpuscular Hemoglobin 25.2 pg (28.0-33.3); Mean Platelet Volume 12.6 fL (9.4-12.4); Monocytes # 0.5 K/mcL (0.0-1.3); Neutrophils # 14.6 K/mcL (1.6-8.9); Platelet Count 269 K/mcL (140-400); Red Blood Count 5.16 M/mcL (4.19-5.50); Red Cell Distribution Width 17.9 % (11.5-14.5); Segmented Neutrophils % 92.4 %; White Blood Count 15.8 K/mcL (4.3-11.1)
[2021-03-10 06:57] LABS: BUN/Creatinine Ratio 25 (6-26); Blood Urea Nitrogen 21 mg/dL (6-20); Calcium 8.9 mg/dL (8.6-10.3); Carbon Dioxide 38 mEq/L (23-29); Chloride 94 mEq/L (98-107); Glucose 193 mg/dL (70-105); Magnesium 2.1 mg/dL (1.6-2.6); Osmolality,Calculated 294 (280-300); Phosphorous 4.2 mg/dL (2.7-4.5); Potassium 4.8 mEq/L (3.5-5.1); Sodium 138 mEq/L (136-145); eGFR For African Americans > 60 (> 60); eGFR For Non-African Americans > 60 (> 60)
[2021-03-10 06:58] LABS: Albumin 3.1 g/dL (3.5-5.7); Bilirubin,Direct 0.1 mg/dL (0.0-0.2); Bilirubin,Indirect 0.3 mg/dL (0.0-1.0); Bilirubin,Total 0.4 mg/dL (0.3-1.0); Globulin 3.2 g/dL (2.4-3.5); Total Protein 6.3 g/dL (6.4-8.9)
[2021-03-10] MEDS: Dexamethasone Sodium Phos/PF 10 MG/ML VIAL IVP SCH (08:21)
[2021-03-10] MEDS: carvediloL 25 MG TABLET PO SCH ×2 (08:22→17:14)
[2021-03-10] MEDS: Furosemide 40 MG/4 ML VIAL IVP SCH ×2 (08:22→21:39)
[2021-03-10] MEDS: cloNIDine HCL 0.1 MG TABLET PO SCH ×2 (08:22→21:39)
[2021-03-10] MEDS: hydroCHLOROthiazide 25 MG TABLET PO SCH (08:22)
[2021-03-10] MEDS: *HR* Rivaroxaban 15 MG TABLET PO SCH ×2 (08:23→17:14)
[2021-03-10] MEDS: Insulin LISPRO 300 UNITS/3 ML VIAL SUBQ SCH ×3 (08:23→17:15)
[2021-03-10] MEDS: lisinopriL 20 MG TABLET PO SCH (08:23)
[2021-03-10] MEDS: levoFLOXacin 750 MG/150 ML 750 MG/150 ML BAG IVPB SCH (09:12)
[2021-03-10] MEDS: Remdesivir 100 MG in 0.9 % Sodium Chloride 100 ML IVPB SCH (17:14)
[2021-03-11] MEDS: hydrALAZINE 25 MG TABLET PO SCH ×3 (00:49→16:32)
[2021-03-11 05:28] LABS: Basophils % 0.1 %; Hematocrit 44.8 % (37.5-50.1); Immature Granulocytes % 0.7 % (0-4)
[2021-03-11 05:30] LABS: Hemoglobin 13.3 g/dL (12.9-16.9); Lymphocytes # 0.6 K/mcL (0.6-4.6); Lymphocytes % 4.6 %; Mean Corpuscular HGB Conc 29.7 g/dL (31.6-35.5); Mean Corpuscular Hemoglobin 25.6 pg (28.0-33.3); Mean Corpuscular Volume 86.3 fL (83.0-100.0); Mean Platelet Volume 12.6 fL (9.4-12.4); Monocytes # 0.9 K/mcL (0.0-1.3); Monocytes % 6.6 %; Platelet Count 302 K/mcL (140-400); Red Blood Count 5.19 M/mcL (4.19-5.50); Red Cell Distribution Width 17.6 % (11.5-14.5); White Blood Count 13.8 K/mcL (4.3-11.1)
[2021-03-11 05:40] LABS: BUN/Creatinine Ratio 32 (6-26); Blood Urea Nitrogen 26 mg/dL (6-20); Calcium 8.9 mg/dL (8.6-10.3); Carbon Dioxide 42 mEq/L (23-29); Chloride 92 mEq/L (98-107); Glucose 143 mg/dL (70-105); Magnesium 2.1 mg/dL (1.6-2.6); Osmolality,Calculated 291 (280-300); Phosphorous 4.5 mg/dL (2.7-4.5); Potassium 4.8 mEq/L (3.5-5.1); Sodium 137 mEq/L (136-145); eGFR For African Americans > 60 (> 60); eGFR For Non-African Americans > 60 (> 60)
[2021-03-11 05:41] LABS: Albumin/Globulin Ratio 0.9 (1.1-2.2); Bilirubin,Indirect 0.4 mg/dL (0.0-1.0); Bilirubin,Total 0.4 mg/dL (0.3-1.0); Globulin 3.2 g/dL (2.4-3.5); Neutrophils # 12.1 K/mcL (1.6-8.9); Total Protein 6.2 g/dL (6.4-8.9)
[2021-03-11 05:42] LABS: Hypochromasia Present (Not Present); Platelet Estimate Normal (Normal)
[2021-03-11] MEDS: *HR* Rivaroxaban 15 MG TABLET PO SCH ×2 (08:05→16:32)
[2021-03-11] MEDS: hydroCHLOROthiazide 25 MG TABLET PO SCH (08:05)
[2021-03-11] MEDS: cloNIDine HCL 0.1 MG TABLET PO SCH ×2 (08:05→20:19)
[2021-03-11] MEDS: lisinopriL 20 MG TABLET PO SCH (08:05)
[2021-03-11] MEDS: carvediloL 25 MG TABLET PO SCH ×2 (08:06→16:32)
[2021-03-11] MEDS: Dexamethasone Sodium Phos/PF 10 MG/ML VIAL IVP SCH (08:06)
[2021-03-11] MEDS: Furosemide 40 MG/4 ML VIAL IVP SCH ×2 (08:07→20:19)
[2021-03-11] MEDS: levoFLOXacin 750 MG/150 ML 750 MG/150 ML BAG IVPB SCH (08:07)
[2021-03-11] MEDS: Insulin LISPRO 300 UNITS/3 ML VIAL SUBQ SCH ×3 (08:07→16:33)
[2021-03-11] MEDS: Remdesivir 100 MG in 0.9 % Sodium Chloride 100 ML IVPB SCH (16:32)
[2021-03-12] MEDS: hydrALAZINE 25 MG TABLET PO SCH ×3 (00:12→16:19)
[2021-03-12 06:48] LABS: Basophils % 0.1 %; Hemoglobin 14.2 g/dL (12.9-16.9); Immature Granulocytes % 0.7 % (0-4); Lymphocytes # 0.8 K/mcL (0.6-4.6); Lymphocytes % 5.6 %; Mean Corpuscular Hemoglobin 24.6 pg (28.0-33.3); Mean Corpuscular Volume 84.9 fL (83.0-100.0); Mean Platelet Volume 11.4 fL (9.4-12.4); Monocytes # 0.9 K/mcL (0.0-1.3); Monocytes % 5.9 %; Neutrophils # 13.1 K/mcL (1.6-8.9); Platelet Count 302 K/mcL (140-400); Red Blood Count 5.77 M/mcL (4.19-5.50); Red Cell Distribution Width 17.9 % (11.5-14.5); Segmented Neutrophils % 87.7 %
[2021-03-12 06:59] LABS: Fibrinogen 333 mg/dL (169-393)
[2021-03-12 07:01] LABS: D-Dimer 1195 ng/mLFEU (0-500)
[2021-03-12 07:47] LABS: Albumin 3.2 g/dL (3.5-5.7); Bilirubin,Direct 0.2 mg/dL (0.0-0.2); Bilirubin,Indirect 0.4 mg/dL (0.0-1.0); Bilirubin,Total 0.6 mg/dL (0.3-1.0); Globulin 3.1 g/dL (2.4-3.5); Total Protein 6.3 g/dL (6.4-8.9)
[2021-03-12 07:49] LABS: Ferritin 35 ng/mL (20-250); Lactate Dehydrogenase 180 Units/L (140-271)
[2021-03-12] MEDS: *HR* Rivaroxaban 15 MG TABLET PO SCH ×2 (07:58→16:19)
[2021-03-12] MEDS: hydroCHLOROthiazide 25 MG TABLET PO SCH (07:58)
[2021-03-12] MEDS: levoFLOXacin 750 MG TABLET PO SCH (07:58)
[2021-03-12] MEDS: cloNIDine HCL 0.1 MG TABLET PO SCH ×2 (07:58→20:59)
[2021-03-12] MEDS: carvediloL 25 MG TABLET PO SCH ×2 (07:58→16:19)
[2021-03-12] MEDS: Dexamethasone Sodium Phos/PF 10 MG/ML VIAL IVP SCH (07:59)
[2021-03-12] MEDS: Furosemide 40 MG/4 ML VIAL IVP SCH ×2 (07:59→20:58)
[2021-03-12] MEDS: lisinopriL 20 MG TABLET PO SCH (07:59)
[2021-03-12] MEDS: Insulin LISPRO 300 UNITS/3 ML VIAL SUBQ SCH ×3 (08:00→17:26)
[2021-03-12 09:31] LABS: BUN/Creatinine Ratio 47 (6-26); Blood Urea Nitrogen 40 mg/dL (6-20); Calcium 9.4 mg/dL (8.6-10.3); Carbon Dioxide 40 mEq/L (23-29); Chloride 92 mEq/L (98-107); Glucose 124 mg/dL (70-105); Magnesium 2.2 mg/dL (1.6-2.6); Osmolality,Calculated 297 (280-300); Phosphorous 5.4 mg/dL (2.7-4.5); Potassium 5.1 mEq/L (3.5-5.1); Sodium 138 mEq/L (136-145); eGFR For African Americans > 60 (> 60); eGFR For Non-African Americans > 60 (> 60)
[2021-03-12] MEDS: Remdesivir 100 MG in 0.9 % Sodium Chloride 100 ML IVPB SCH (16:20)
[2021-03-13] MEDS: hydrALAZINE 25 MG TABLET PO SCH ×3 (00:25→16:45)
[2021-03-13 04:43] LABS: Basophils % 0.2 %; Hemoglobin 14.4 g/dL (12.9-16.9); Immature Granulocytes % 0.6 % (0-4); Lymphocytes # 0.6 K/mcL (0.6-4.6); Lymphocytes % 5.2 %; Mean Corpuscular Hemoglobin 24.8 pg (28.0-33.3); Mean Corpuscular Volume 82.6 fL (83.0-100.0); Mean Platelet Volume 11.7 fL (9.4-12.4); Monocytes # 0.7 K/mcL (0.0-1.3); Monocytes % 5.6 %; Platelet Count 291 K/mcL (140-400); Red Blood Count 5.81 M/mcL (4.19-5.50); Red Cell Distribution Width 17.9 % (11.5-14.5); Segmented Neutrophils % 88.4 %; White Blood Count 12.4 K/mcL (4.3-11.1)
[2021-03-13 05:06] LABS: Albumin 3.1 g/dL (3.5-5.7); Albumin/Globulin Ratio 1.1 (1.1-2.2); Bilirubin,Direct 0.2 mg/dL (0.0-0.2); Bilirubin,Indirect 0.4 mg/dL (0.0-1.0); Bilirubin,Total 0.6 mg/dL (0.3-1.0); Globulin 2.9 g/dL (2.4-3.5)
[2021-03-13 05:14] LABS: BUN/Creatinine Ratio 62 (6-26); Blood Urea Nitrogen 54 mg/dL (6-20); Calcium 9.2 mg/dL (8.6-10.3); Carbon Dioxide 40 mEq/L (23-29); Chloride 92 mEq/L (98-107); Glucose 139 mg/dL (70-105); Magnesium 2.3 mg/dL (1.6-2.6); Osmolality,Calculated 297 (280-300); Phosphorous 4.8 mg/dL (2.7-4.5); Potassium 4.9 mEq/L (3.5-5.1); Sodium 135 mEq/L (136-145); eGFR For African Americans > 60 (> 60); eGFR For Non-African Americans > 60 (> 60)
[2021-03-13] MEDS: lisinopriL 20 MG TABLET PO SCH (09:04)
[2021-03-13] MEDS: cloNIDine HCL 0.1 MG TABLET PO SCH ×2 (09:04→22:07)
[2021-03-13] MEDS: carvediloL 25 MG TABLET PO SCH ×2 (09:04→16:45)
[2021-03-13] MEDS: levoFLOXacin 750 MG TABLET PO SCH (09:04)
[2021-03-13] MEDS: *HR* Rivaroxaban 15 MG TABLET PO SCH ×2 (09:04→16:45)
[2021-03-13] MEDS: Dexamethasone Sodium Phos/PF 10 MG/ML VIAL IVP SCH (09:05)
[2021-03-13] MEDS: hydroCHLOROthiazide 25 MG TABLET PO SCH (09:05)
[2021-03-13] MEDS: Furosemide 40 MG/4 ML VIAL IVP SCH ×2 (09:05→22:07)
[2021-03-13] MEDS: Insulin LISPRO 300 UNITS/3 ML VIAL SUBQ SCH ×3 (09:20→16:51)
[2021-03-13] MEDS: Acetaminophen 325 MG TABLET PO PRN (12:26)
[2021-03-13] MEDS: Remdesivir 100 MG in 0.9 % Sodium Chloride 100 ML IVPB SCH (17:06)
[2021-03-14] MEDS: hydrALAZINE 25 MG TABLET PO SCH ×4 (05:02→23:12)
[2021-03-14] MEDS: Insulin LISPRO 300 UNITS/3 ML VIAL SUBQ SCH ×3 (08:21→16:22)
[2021-03-14] MEDS: carvediloL 25 MG TABLET PO SCH ×2 (08:31→16:22)
[2021-03-14] MEDS: hydroCHLOROthiazide 25 MG TABLET PO SCH (08:31)
[2021-03-14] MEDS: levoFLOXacin 750 MG TABLET PO SCH (08:31)
[2021-03-14] MEDS: *HR* Rivaroxaban 15 MG TABLET PO SCH ×2 (08:31→16:22)
[2021-03-14] MEDS: Dexamethasone Sodium Phos/PF 10 MG/ML VIAL IVP SCH (08:32)
[2021-03-14] MEDS: Furosemide 40 MG TABLET PO SCH ×2 (08:32→16:22)
[2021-03-14] MEDS: cloNIDine HCL 0.1 MG TABLET PO SCH ×2 (08:33→22:00)
[2021-03-14] MEDS: lisinopriL 20 MG TABLET PO SCH (08:33)
[2021-03-14] MEDS: Acetaminophen 325 MG TABLET PO PRN (08:55)
[2021-03-15 06:06] LABS: Basophils % 0.1 %; Hemoglobin 14.7 g/dL (12.9-16.9); Immature Granulocytes % 0.7 % (0-4); Lymphocytes # 0.8 K/mcL (0.6-4.6); Lymphocytes % 5.2 %; Mean Corpuscular HGB Conc 29.4 g/dL (31.6-35.5); Mean Corpuscular Volume 85.2 fL (83.0-100.0); Monocytes # 1.4 K/mcL (0.0-1.3); Monocytes % 8.9 %; Neutrophils # 13.6 K/mcL (1.6-8.9); Platelet Count 297 K/mcL (140-400); Red Blood Count 5.87 M/mcL (4.19-5.50); Red Cell Distribution Width 18.2 % (11.5-14.5); Segmented Neutrophils % 85.1 %; White Blood Count 16.1 K/mcL (4.3-11.1)
[2021-03-15 06:23] LABS: Fibrinogen 203 mg/dL (169-393)
[2021-03-15 06:25] LABS: D-Dimer 1298 ng/mLFEU (0-500)
[2021-03-15 07:04] LABS: BUN/Creatinine Ratio 71 (6-26); Blood Urea Nitrogen 67 mg/dL (6-20); Calcium 9.1 mg/dL (8.6-10.3); Carbon Dioxide 37 mEq/L (23-29); Chloride 98 mEq/L (98-107); Ferritin 38 ng/mL (20-250); Glucose 123 mg/dL (70-105); Lactate Dehydrogenase 211 Units/L (140-271); Magnesium 2.3 mg/dL (1.6-2.6); Osmolality,Calculated 309 (280-300); Phosphorous 3.6 mg/dL (2.7-4.5); Sodium 139 mEq/L (136-145); eGFR For African Americans > 60 (> 60); eGFR For Non-African Americans > 60 (> 60)
[2021-03-15] MEDS: cloNIDine HCL 0.1 MG TABLET PO SCH ×2 (08:24→22:11)
[2021-03-15] MEDS: hydroCHLOROthiazide 25 MG TABLET PO SCH (08:24)
[2021-03-15] MEDS: hydrALAZINE 25 MG TABLET PO SCH ×2 (08:24→17:26)
[2021-03-15] MEDS: carvediloL 25 MG TABLET PO SCH ×2 (08:25→17:26)
[2021-03-15] MEDS: Furosemide 40 MG TABLET PO SCH ×2 (08:25→17:26)
[2021-03-15] MEDS: lisinopriL 20 MG TABLET PO SCH (08:25)
[2021-03-15] MEDS: levoFLOXacin 750 MG TABLET PO SCH (08:25)
[2021-03-15] MEDS: *HR* Rivaroxaban 15 MG TABLET PO SCH ×2 (08:25→17:26)
[2021-03-15] MEDS: Dexamethasone Sodium Phos/PF 10 MG/ML VIAL IVP SCH (08:25)
[2021-03-15] MEDS: Insulin LISPRO 300 UNITS/3 ML VIAL SUBQ SCH ×3 (08:26→17:26)
[2021-03-16] MEDS: Acetaminophen 325 MG TABLET PO PRN (00:23)
[2021-03-16] MEDS: hydrALAZINE 25 MG TABLET PO SCH ×4 (00:24→23:05)
[2021-03-16] MEDS: Insulin LISPRO 300 UNITS/3 ML VIAL SUBQ SCH ×3 (07:56→18:33)
[2021-03-16] MEDS: hydroCHLOROthiazide 25 MG TABLET PO SCH (07:59)
[2021-03-16] MEDS: carvediloL 25 MG TABLET PO SCH ×2 (07:59→16:22)
[2021-03-16] MEDS: cloNIDine HCL 0.1 MG TABLET PO SCH (08:00)
[2021-03-16] MEDS: Furosemide 40 MG TABLET PO SCH ×2 (08:00→16:22)
[2021-03-16] MEDS: Dexamethasone Sodium Phos/PF 10 MG/ML VIAL IVP SCH (08:00)
[2021-03-16] MEDS: lisinopriL 20 MG TABLET PO SCH (08:00)
[2021-03-16] MEDS: *HR* Rivaroxaban 15 MG TABLET PO SCH ×2 (08:00→16:21)
[2021-03-16] MEDS ORDERED: ALPRAZolam 0.5 MG TABLET PO ONE (15:58)
[2021-03-16] MEDS: Budesonide/Formoterol 160/4.5 1 PUFF INH IH SCH (22:55)
[2021-03-17 06:56] LABS: Basophils % 0.2 %; Hematocrit 49.2 % (37.5-50.1); Hemoglobin 14.8 g/dL (12.9-16.9); Immature Granulocytes % 0.8 % (0-4); Lymphocytes # 0.8 K/mcL (0.6-4.6); Mean Corpuscular HGB Conc 30.1 g/dL (31.6-35.5); Mean Corpuscular Hemoglobin 24.5 pg (28.0-33.3); Mean Corpuscular Volume 81.6 fL (83.0-100.0); Mean Platelet Volume 13.1 fL (9.4-12.4); Monocytes # 1.4 K/mcL (0.0-1.3); Monocytes % 8.5 %; Neutrophils # 14.2 K/mcL (1.6-8.9); Platelet Count 261 K/mcL (140-400); Red Blood Count 6.03 M/mcL (4.19-5.50); Segmented Neutrophils % 85.5 %; White Blood Count 16.6 K/mcL (4.3-11.1)
[2021-03-17 07:18] LABS: BUN/Creatinine Ratio 83 (6-26); Blood Urea Nitrogen 72 mg/dL (6-20); Calcium 9.1 mg/dL (8.6-10.3); Carbon Dioxide 37 mEq/L (23-29); Chloride 98 mEq/L (98-107); Glucose 141 mg/dL (70-105); Magnesium 2.3 mg/dL (1.6-2.6); Osmolality,Calculated 308 (280-300); Phosphorous 3.7 mg/dL (2.7-4.5); Potassium 5.6 mEq/L (3.5-5.1); Sodium 137 mEq/L (136-145); eGFR For African Americans > 60 (> 60); eGFR For Non-African Americans > 60 (> 60)
[2021-03-17 07:35] LABS: Ferritin 95 ng/mL (20-250)
[2021-03-17] MEDS: Budesonide/Formoterol 160/4.5 1 PUFF INH IH SCH (07:40)
[2021-03-17] MEDS: lisinopriL 20 MG TABLET PO SCH (09:44)
[2021-03-17] MEDS: carvediloL 25 MG TABLET PO SCH ×2 (09:44→17:31)
[2021-03-17] MEDS: Furosemide 40 MG/4 ML VIAL IVP SCH ×3 (09:45→21:38)
[2021-03-17] MEDS: hydrALAZINE 25 MG TABLET PO SCH ×3 (09:45→23:49)
[2021-03-17] MEDS: Loratadine 10 MG TABLET PO SCH (09:45)
[2021-03-17] MEDS: *HR* Rivaroxaban 15 MG TABLET PO SCH ×2 (09:46→17:31)
[2021-03-17] MEDS: cloNIDine HCL 0.1 MG TABLET PO SCH (09:46)
[2021-03-17] MEDS: Dexamethasone Sodium Phos/PF 10 MG/ML VIAL IVP SCH (09:46)
[2021-03-17] MEDS: Insulin LISPRO 300 UNITS/3 ML VIAL SUBQ SCH ×4 (09:46→21:39)
[2021-03-17] MEDS: Ipratropium 1 PUFF INHALER IH SCH ×2 (18:16→20:06)
[2021-03-17] MEDS ORDERED: *HR* Dextrose 50 % in Water (Vial) 50 ML VIAL IVP PRN (21:12)
[2021-03-17] MEDS ORDERED: Dextrose Gel 15 GM/37.5 ML TUBE PO PRN ×2 (21:12)
[2021-03-17] MEDS ORDERED: D5% in Water 1,000 ML IVC PRN (21:12)
[2021-03-18] MEDS: Ipratropium 1 PUFF INHALER IH SCH ×7 (00:04→23:52)
[2021-03-18 00:26] LABS: Hemoglobin 14.9 g/dL (12.9-16.9); Immature Granulocytes % 0.9 % (0-4); Mean Corpuscular Hemoglobin 24.9 pg (28.0-33.3); Red Blood Count 5.99 M/mcL (4.19-5.50)
[2021-03-18 00:27] LABS: Basophils % 0.2 %; Hematocrit 50.9 % (37.5-50.1); Immature Platelets 9.1 % (1.1-6.1); Lymphocytes # 0.5 K/mcL (0.6-4.6); Lymphocytes % 4.2 %; Mean Corpuscular HGB Conc 29.3 g/dL (31.6-35.5); Mean Platelet Volume 11.8 fL (9.4-12.4); Monocytes % 8.9 %; Platelet Count 220 K/mcL (140-400); Red Cell Distribution Width 17.9 % (11.5-14.5); Segmented Neutrophils % 85.8 %; White Blood Count 12.9 K/mcL (4.3-11.1)
[2021-03-18 00:28] LABS: Monocytes # 1.2 K/mcL (0.0-1.3); Neutrophils # 11.1 K/mcL (1.6-8.9)
[2021-03-18 00:40] LABS: BUN/Creatinine Ratio 69 (6-26); Blood Urea Nitrogen 90 mg/dL (6-20); Calcium 9.4 mg/dL (8.6-10.3); Carbon Dioxide 40 mEq/L (23-29); Chloride 95 mEq/L (98-107); Glucose 157 mg/dL (70-105); Magnesium 2.4 mg/dL (1.6-2.6); Osmolality,Calculated 317 (280-300); Potassium 5.7 mEq/L (3.5-5.1); Sodium 138 mEq/L (136-145); eGFR For African Americans > 60 (> 60); eGFR For Non-African Americans > 60 (> 60)
[2021-03-18] MEDS: Melatonin 3 MG TABLET PO PRN (01:12)
[2021-03-18] MEDS: Spironolactone 25 MG TABLET PO SCH (08:30)
[2021-03-18] MEDS: carvediloL 25 MG TABLET PO SCH ×2 (08:30→16:02)
[2021-03-18] MEDS: hydrALAZINE 25 MG TABLET PO SCH ×2 (08:30→16:03)
[2021-03-18] MEDS: *HR* Rivaroxaban 15 MG TABLET PO SCH ×2 (08:30→16:03)
[2021-03-18] MEDS: Loratadine 10 MG TABLET PO SCH (08:30)
[2021-03-18] MEDS: cloNIDine HCL 0.1 MG TABLET PO SCH (08:30)
[2021-03-18] MEDS: Insulin LISPRO 300 UNITS/3 ML VIAL SUBQ SCH ×4 (08:30→21:54)
[2021-03-18] MEDS: Furosemide 40 MG/4 ML VIAL IVP SCH ×3 (08:31→22:11)
[2021-03-18] MEDS: Dexamethasone Sodium Phos/PF 10 MG/ML VIAL IVP SCH (08:31)
[2021-03-18] MEDS ORDERED: lisinopriL 20 MG TABLET PO SCH (09:00)
[2021-03-19] MEDS: hydrALAZINE 25 MG TABLET PO SCH ×4 (01:31→23:39)
[2021-03-19] MEDS: *HR* LORazepam 0.5 MG TABLET PO PRN ×2 (01:31→21:41)
[2021-03-19 01:52] LABS: Basophils % 0.1 %; Mean Corpuscular Volume 82.7 fL (83.0-100.0)
[2021-03-19 01:54] LABS: Hematocrit 48.9 % (37.5-50.1); Hemoglobin 14.5 g/dL (12.9-16.9); Immature Platelets 11.1 % (1.1-6.1); Lymphocytes # 0.9 K/mcL (0.6-4.6); Lymphocytes % 5.5 %; Mean Corpuscular HGB Conc 29.7 g/dL (31.6-35.5); Mean Corpuscular Hemoglobin 24.5 pg (28.0-33.3); Monocytes # 1.5 K/mcL (0.0-1.3); Monocytes % 9.2 %; Neutrophils # 13.6 K/mcL (1.6-8.9); Platelet Count 182 K/mcL (140-400); Red Blood Count 5.91 M/mcL (4.19-5.50); Red Cell Distribution Width 18.2 % (11.5-14.5); Segmented Neutrophils % 84.2 %; White Blood Count 16.2 K/mcL (4.3-11.1)
[2021-03-19 02:14] LABS: BUN/Creatinine Ratio 83 (6-26); Blood Urea Nitrogen 79 mg/dL (6-20); Calcium 9.2 mg/dL (8.6-10.3); Carbon Dioxide 40 mEq/L (23-29); Chloride 94 mEq/L (98-107); Glucose 185 mg/dL (70-105); Magnesium 2.3 mg/dL (1.6-2.6); Osmolality,Calculated 312 (280-300); Potassium 5.7 mEq/L (3.5-5.1); Sodium 137 mEq/L (136-145); eGFR For African Americans > 60 (> 60); eGFR For Non-African Americans > 60 (> 60)
[2021-03-19] MEDS: Ipratropium 1 PUFF INHALER IH SCH ×6 (03:36→23:39)
[2021-03-19] MEDS: Furosemide 40 MG/4 ML VIAL IVP SCH ×3 (07:50→21:41)
[2021-03-19] MEDS: carvediloL 25 MG TABLET PO SCH ×2 (07:50→16:26)
[2021-03-19] MEDS: Loratadine 10 MG TABLET PO SCH (07:50)
[2021-03-19] MEDS: Spironolactone 25 MG TABLET PO SCH (07:50)
[2021-03-19] MEDS: *HR* Rivaroxaban 15 MG TABLET PO SCH ×2 (07:50→16:26)
[2021-03-19] MEDS: Dexamethasone Sodium Phos/PF 10 MG/ML VIAL IVP SCH (07:51)
[2021-03-19] MEDS: Insulin LISPRO 300 UNITS/3 ML VIAL SUBQ SCH ×4 (07:51→21:40)
[2021-03-19] MEDS ORDERED: Calcium Gluconate 1,000 MG/10 ML VIAL IVPB ONE (11:42)
[2021-03-19] MEDS ORDERED: Calcium Gluconate 1gm/50mL 1 GM/50 ML BAG IVPB PRN (11:46)
[2021-03-19 17:42] LABS: BUN/Creatinine Ratio 86 (6-26); Blood Urea Nitrogen 72 mg/dL (6-20); Calcium 8.8 mg/dL (8.6-10.3); Carbon Dioxide 34 mEq/L (23-29); Chloride 94 mEq/L (98-107); Creatine Kinase 80 Units/L (30-223); Glucose 201 mg/dL (70-105); Osmolality,Calculated 309 (280-300); Potassium 5.2 mEq/L (3.5-5.1); Sodium 136 mEq/L (136-145); eGFR For African Americans > 60 (> 60); eGFR For Non-African Americans > 60 (> 60)
[2021-03-19] MEDS ORDERED: Furosemide 40 MG/4 ML VIAL IVP SCH (21:00)
[2021-03-19] MEDS: Melatonin 3 MG TABLET PO PRN (21:41)
[2021-03-20] MEDS: Ipratropium 1 PUFF INHALER IH SCH ×6 (03:41→23:27)
[2021-03-20 03:56] LABS: Basophils % 0.1 %; Hematocrit 46.5 % (37.5-50.1)
[2021-03-20 03:58] LABS: VBG HCO3 38 mEq/L (21-27); VBG PCO2 62 mmHg (41-51); VBG PO2 189 mmHg (25-50)
[2021-03-20 03:58] LABS: Immature Granulocytes % 1.1 % (0-4); Immature Platelets 11.3 % (1.1-6.1); Lymphocytes # 1.1 K/mcL (0.6-4.6); Lymphocytes % 5.7 %; Mean Corpuscular HGB Conc 30.1 g/dL (31.6-35.5); Mean Corpuscular Hemoglobin 24.4 pg (28.0-33.3); Mean Corpuscular Volume 81.2 fL (83.0-100.0); Monocytes % 10.2 %; Neutrophils # 16.1 K/mcL (1.6-8.9); Platelet Count 161 K/mcL (140-400); Red Blood Count 5.73 M/mcL (4.19-5.50); Red Cell Distribution Width 17.9 % (11.5-14.5); Segmented Neutrophils % 82.9 %; White Blood Count 19.4 K/mcL (4.3-11.1)
[2021-03-20 04:36] LABS: Alanine Aminotransferase 19 Units/L (7-52); Albumin 3.3 g/dL (3.5-5.7); Albumin/Globulin Ratio 1.5 (1.1-2.2); Alkaline Phosphatase 38 Units/L (34-104); Aspartate Amino Transferase 13 Units/L (13-39); BUN/Creatinine Ratio 77 (6-26); Bilirubin,Direct 0.1 mg/dL (0.0-0.2); Bilirubin,Indirect 0.6 mg/dL (0.0-1.0); Bilirubin,Total 0.7 mg/dL (0.3-1.0); Blood Urea Nitrogen 71 mg/dL (6-20); Calcium 8.9 mg/dL (8.6-10.3); Carbon Dioxide 40 mEq/L (23-29); Chloride 93 mEq/L (98-107); Globulin 2.2 g/dL (2.4-3.5); Glucose 173 mg/dL (70-105); Magnesium 2.1 mg/dL (1.6-2.6); Osmolality,Calculated 307 (280-300); Potassium 5.1 mEq/L (3.5-5.1); Sodium 136 mEq/L (136-145); Total Protein 5.5 g/dL (6.4-8.9); eGFR For African Americans > 60 (> 60); eGFR For Non-African Americans > 60 (> 60)
[2021-03-20] MEDS: Insulin LISPRO 300 UNITS/3 ML VIAL SUBQ SCH ×4 (09:01→21:28)
[2021-03-20] MEDS: Loratadine 10 MG TABLET PO SCH (10:01)
[2021-03-20] MEDS: *HR* Rivaroxaban 15 MG TABLET PO SCH ×2 (10:01→17:19)
[2021-03-20] MEDS: carvediloL 25 MG TABLET PO SCH ×2 (10:01→17:19)
[2021-03-20] MEDS: hydrALAZINE 25 MG TABLET PO SCH ×3 (10:01→23:57)
[2021-03-20] MEDS: Dexamethasone Sodium Phos/PF 10 MG/ML VIAL IVP SCH (10:02)
[2021-03-20] MEDS: Furosemide 40 MG/4 ML VIAL IVP SCH ×3 (10:03→17:18)
[2021-03-20] MEDS: *HR* LORazepam 0.5 MG TABLET PO PRN ×2 (14:48→21:42)
[2021-03-20] MEDS: Melatonin 3 MG TABLET PO PRN (21:42)
[2021-03-20] MEDS: Simethicone 80 MG TAB.CHEW PO PRN (21:42)
[2021-03-21 00:55] LABS: Basophils % 0.1 %
[2021-03-21 00:57] LABS: Hematocrit 47.6 % (37.5-50.1); Hemoglobin 14.4 g/dL (12.9-16.9); Immature Platelets 13.1 % (1.1-6.1); Lymphocytes # 0.8 K/mcL (0.6-4.6); Lymphocytes % 4.6 %; Mean Corpuscular HGB Conc 30.3 g/dL (31.6-35.5); Mean Corpuscular Hemoglobin 24.8 pg (28.0-33.3); Mean Corpuscular Volume 81.9 fL (83.0-100.0); Monocytes # 1.3 K/mcL (0.0-1.3); Monocytes % 7.1 %; Neutrophils # 15.7 K/mcL (1.6-8.9); Platelet Count 152 K/mcL (140-400); Red Blood Count 5.81 M/mcL (4.19-5.50); Red Cell Distribution Width 18.1 % (11.5-14.5); Segmented Neutrophils % 87.2 %
[2021-03-21 01:10] LABS: BUN/Creatinine Ratio 71 (6-26); Blood Urea Nitrogen 58 mg/dL (6-20); Calcium 8.9 mg/dL (8.6-10.3); Carbon Dioxide 39 mEq/L (23-29); Chloride 92 mEq/L (98-107); Glucose 177 mg/dL (70-105); Magnesium 2.1 mg/dL (1.6-2.6); Osmolality,Calculated 303 (280-300); Potassium 4.9 mEq/L (3.5-5.1); Sodium 136 mEq/L (136-145); eGFR For African Americans > 60 (> 60); eGFR For Non-African Americans > 60 (> 60)
[2021-03-21] MEDS: Ipratropium 1 PUFF INHALER IH SCH ×6 (04:47→23:40)
[2021-03-21] MEDS: Insulin LISPRO 300 UNITS/3 ML VIAL SUBQ SCH ×4 (08:52→21:28)
[2021-03-21] MEDS: carvediloL 25 MG TABLET PO SCH ×2 (08:55→16:52)
[2021-03-21] MEDS: Furosemide 40 MG/4 ML VIAL IVP SCH (08:56)
[2021-03-21] MEDS: Loratadine 10 MG TABLET PO SCH (08:56)
[2021-03-21] MEDS: *HR* Rivaroxaban 15 MG TABLET PO SCH ×2 (08:56→16:52)
[2021-03-21] MEDS: lisinopriL 10 MG TABLET PO SCH (08:56)
[2021-03-21] MEDS: Dexamethasone Sodium Phos/PF 10 MG/ML VIAL IVP SCH (08:56)
[2021-03-21] MEDS: hydrALAZINE 25 MG TABLET PO SCH ×3 (08:57→23:11)
[2021-03-21] MEDS: Acetaminophen 325 MG TABLET PO PRN (11:58)
[2021-03-21] MEDS: Simethicone 80 MG TAB.CHEW PO PRN (13:09)
[2021-03-21] MEDS: *HR* LORazepam 0.5 MG TABLET PO PRN (23:11)
[2021-03-21] MEDS: Melatonin 3 MG TABLET PO PRN (23:11)
[2021-03-22] MEDS: Ipratropium 1 PUFF INHALER IH SCH ×5 (04:07→20:13)
[2021-03-22] MEDS: Acetaminophen 325 MG TABLET PO PRN ×2 (06:35→21:47)
[2021-03-22 08:05] LABS: Hemoglobin 13.5 g/dL (12.9-16.9); Mean Corpuscular Hemoglobin 24.4 pg (28.0-33.3)
[2021-03-22 08:07] LABS: Hematocrit 44.5 % (37.5-50.1); Immature Platelets 14.6 % (1.1-6.1); Mean Corpuscular HGB Conc 30.3 g/dL (31.6-35.5); Mean Corpuscular Volume 80.5 fL (83.0-100.0); Platelet Count 152 K/mcL (140-400); Red Blood Count 5.53 M/mcL (4.19-5.50); Red Cell Distribution Width 17.9 % (11.5-14.5); White Blood Count 24.7 K/mcL (4.3-11.1)
[2021-03-22] MEDS: Insulin LISPRO 300 UNITS/3 ML VIAL SUBQ SCH ×4 (08:11→21:21)
[2021-03-22] MEDS: carvediloL 25 MG TABLET PO SCH ×2 (08:11→17:07)
[2021-03-22] MEDS: *HR* Rivaroxaban 15 MG TABLET PO SCH ×2 (08:11→17:07)
[2021-03-22] MEDS: lisinopriL 10 MG TABLET PO SCH (08:11)
[2021-03-22] MEDS: Dexamethasone Sodium Phos/PF 10 MG/ML VIAL IVP SCH (08:11)
[2021-03-22] MEDS: Loratadine 10 MG TABLET PO SCH (08:11)
[2021-03-22] MEDS: hydrALAZINE 25 MG TABLET PO SCH ×2 (08:11→17:07)
[2021-03-22 08:38] LABS: Monocytes # 1.5 K/mcL (0.0-1.3); Neutrophils # 20.3 K/mcL (1.6-8.9); Platelet Estimate Normal (Normal); Reactive Lymphocytes Present (Not Present)
[2021-03-22 09:03] LABS: Alanine Aminotransferase 19 Units/L (7-52); Albumin 3.3 g/dL (3.5-5.7); Albumin/Globulin Ratio 1.7 (1.1-2.2); Alkaline Phosphatase 35 Units/L (34-104); Aspartate Amino Transferase 12 Units/L (13-39); BUN/Creatinine Ratio 86 (6-26); Bilirubin,Direct 0.2 mg/dL (0.0-0.2); Bilirubin,Indirect 0.5 mg/dL (0.0-1.0); Bilirubin,Total 0.7 mg/dL (0.3-1.0); Blood Urea Nitrogen 76 mg/dL (6-20); Carbon Dioxide 36 mEq/L (23-29); Chloride 95 mEq/L (98-107); Glucose 141 mg/dL (70-105); Magnesium 2.2 mg/dL (1.6-2.6); Osmolality,Calculated 305 (280-300); Potassium 4.9 mEq/L (3.5-5.1); Sodium 135 mEq/L (136-145); Total Protein 5.3 g/dL (6.4-8.9); eGFR For African Americans > 60 (> 60); eGFR For Non-African Americans > 60 (> 60)
[2021-03-22] MEDS: Simethicone 80 MG TAB.CHEW PO PRN (17:11)
[2021-03-23] MEDS: Melatonin 3 MG TABLET PO PRN (00:02)
[2021-03-23] MEDS: *HR* LORazepam 0.5 MG TABLET PO PRN (00:02)
[2021-03-23] MEDS: hydrALAZINE 25 MG TABLET PO SCH ×4 (00:02→23:51)
[2021-03-23] MEDS: Ipratropium 1 PUFF INHALER IH SCH ×7 (00:13→23:37)
[2021-03-23 00:58] LABS: Immature Granulocytes % 1.2 % (0-4)
[2021-03-23 01:00] LABS: Basophils % 0.1 %; Hematocrit 43.2 % (37.5-50.1); Immature Platelets 15.4 % (1.1-6.1); Lymphocytes # 0.9 K/mcL (0.6-4.6); Lymphocytes % 3.6 %; Mean Corpuscular HGB Conc 30.1 g/dL (31.6-35.5); Mean Corpuscular Hemoglobin 24.4 pg (28.0-33.3); Mean Corpuscular Volume 81.1 fL (83.0-100.0); Monocytes # 1.6 K/mcL (0.0-1.3); Monocytes % 6.1 %; Neutrophils # 23.2 K/mcL (1.6-8.9); Platelet Count 145 K/mcL (140-400); Red Blood Count 5.33 M/mcL (4.19-5.50); Red Cell Distribution Width 17.4 % (11.5-14.5); White Blood Count 26.1 K/mcL (4.3-11.1)
[2021-03-23 01:17] LABS: BUN/Creatinine Ratio 67 (6-26); Blood Urea Nitrogen 62 mg/dL (6-20); Calcium 8.6 mg/dL (8.6-10.3); Carbon Dioxide 32 mEq/L (23-29); Chloride 96 mEq/L (98-107); Glucose 153 mg/dL (70-105); Magnesium 2.1 mg/dL (1.6-2.6); Osmolality,Calculated 297 (280-300); Sodium 133 mEq/L (136-145); eGFR For African Americans > 60 (> 60); eGFR For Non-African Americans > 60 (> 60)
[2021-03-23] MEDS: Acetaminophen 325 MG TABLET PO PRN (02:07)
[2021-03-23] MEDS: *HR* Rivaroxaban 15 MG TABLET PO SCH ×2 (08:09→17:29)
[2021-03-23] MEDS: Loratadine 10 MG TABLET PO SCH (08:09)
[2021-03-23] MEDS: Dexamethasone Sodium Phos/PF 10 MG/ML VIAL IVP SCH (08:09)
[2021-03-23] MEDS: carvediloL 25 MG TABLET PO SCH ×2 (08:10→17:29)
[2021-03-23] MEDS: lisinopriL 10 MG TABLET PO SCH (08:10)
[2021-03-23] MEDS: Insulin LISPRO 300 UNITS/3 ML VIAL SUBQ SCH ×4 (08:10→22:54)
[2021-03-23] MEDS: Isosorbide MONOnitrate (24 HR) 30 MG TAB.ER.24H PO SCH (08:10)
[2021-03-23] MEDS: Furosemide 40 MG TABLET PO SCH (17:29)
[2021-03-23] MEDS: Simethicone 80 MG TAB.CHEW PO PRN (23:51)
[2021-03-24] MEDS: Melatonin 3 MG TABLET PO PRN (01:43)
[2021-03-24] MEDS: *HR* LORazepam 0.5 MG TABLET PO PRN (01:43)
[2021-03-24] MEDS: Ipratropium 1 PUFF INHALER IH SCH ×6 (03:39→23:50)
[2021-03-24 07:50] LABS: Basophils % 0.1 %; Eosinophils % 0.2 %; Hemoglobin 12.9 g/dL (12.9-16.9); Lymphocytes # 1.3 K/mcL (0.6-4.6); Lymphocytes % 5.4 %; Mean Corpuscular Hemoglobin 24.8 pg (28.0-33.3); Mean Corpuscular Volume 82.7 fL (83.0-100.0); Neutrophils # 21.2 K/mcL (1.6-8.9); Platelet Count 139 K/mcL (140-400); Red Cell Distribution Width 18.2 % (11.5-14.5); Segmented Neutrophils % 85.3 %; White Blood Count 24.8 K/mcL (4.3-11.1)
[2021-03-24 07:51] LABS: Eosinophils # 0.1 K/mcL (0.0-0.6)
[2021-03-24 08:29] LABS: BUN/Creatinine Ratio 70 (6-26); Blood Urea Nitrogen 62 mg/dL (6-20); Calcium 8.8 mg/dL (8.6-10.3); Carbon Dioxide 30 mEq/L (23-29); Chloride 100 mEq/L (98-107); Glucose 93 mg/dL (70-105); Magnesium 2.1 mg/dL (1.6-2.6); Osmolality,Calculated 295 (280-300); Potassium 5.3 mEq/L (3.5-5.1); Sodium 134 mEq/L (136-145); eGFR For African Americans > 60 (> 60); eGFR For Non-African Americans > 60 (> 60)
[2021-03-24 08:40] LABS: Platelet Estimate Slight Decrease (Normal)
[2021-03-24] MEDS: Dexamethasone Sodium Phos/PF 10 MG/ML VIAL IVP SCH (09:56)
[2021-03-24] MEDS: Isosorbide MONOnitrate (24 HR) 30 MG TAB.ER.24H PO SCH (10:02)
[2021-03-24] MEDS: carvediloL 25 MG TABLET PO SCH ×2 (10:02→17:14)
[2021-03-24] MEDS: Loratadine 10 MG TABLET PO SCH (10:02)
[2021-03-24] MEDS: *HR* Rivaroxaban 15 MG TABLET PO SCH ×2 (10:02→17:14)
[2021-03-24] MEDS: Insulin LISPRO 300 UNITS/3 ML VIAL SUBQ SCH ×3 (10:03→17:15)
[2021-03-24] MEDS: Furosemide 40 MG TABLET PO SCH ×2 (10:03→17:14)
[2021-03-24] MEDS: lisinopriL 10 MG TABLET PO SCH (10:06)
[2021-03-24] MEDS: hydrALAZINE 25 MG TABLET PO SCH ×2 (11:00→17:14)
[2021-03-25] MEDS: hydrALAZINE 25 MG TABLET PO SCH ×4 (00:49→23:54)
[2021-03-25] MEDS: Insulin LISPRO 300 UNITS/3 ML VIAL SUBQ SCH ×5 (00:49→23:39)
[2021-03-25] MEDS: *HR* LORazepam 0.5 MG TABLET PO PRN ×2 (00:50→21:03)
[2021-03-25] MEDS: Melatonin 3 MG TABLET PO PRN (00:50)
[2021-03-25] MEDS: Ipratropium 1 PUFF INHALER IH SCH ×6 (04:21→23:25)
[2021-03-25] MEDS: Furosemide 40 MG TABLET PO SCH ×2 (07:59→16:17)
[2021-03-25] MEDS: Isosorbide MONOnitrate (24 HR) 30 MG TAB.ER.24H PO SCH (07:59)
[2021-03-25] MEDS: Loratadine 10 MG TABLET PO SCH (07:59)
[2021-03-25] MEDS: carvediloL 25 MG TABLET PO SCH ×2 (07:59→16:17)
[2021-03-25] MEDS: *HR* Rivaroxaban 15 MG TABLET PO SCH (08:00)
[2021-03-25] MEDS: lisinopriL 5 MG TABLET PO SCH (08:00)
[2021-03-25 09:03] LABS: BUN/Creatinine Ratio 70 (6-26); Blood Urea Nitrogen 59 mg/dL (6-20); Calcium 8.4 mg/dL (8.6-10.3); Carbon Dioxide 30 mEq/L (23-29); Chloride 100 mEq/L (98-107); Glucose 137 mg/dL (70-105); Magnesium 1.9 mg/dL (1.6-2.6); Osmolality,Calculated 297 (280-300); Potassium 5.1 mEq/L (3.5-5.1); Sodium 134 mEq/L (136-145); eGFR For African Americans > 60 (> 60); eGFR For Non-African Americans > 60 (> 60)
[2021-03-25] MEDS: *HR* Rivaroxaban 10 MG TABLET PO SCH (16:17)
[2021-03-26] MEDS: Melatonin 3 MG TABLET PO PRN (00:48)
[2021-03-26 01:05] LABS: Hemoglobin 11.9 g/dL (12.9-16.9); Mean Corpuscular HGB Conc 29.8 g/dL (31.6-35.5); Mean Corpuscular Hemoglobin 24.4 pg (28.0-33.3); Platelet Count 140 K/mcL (140-400); Red Blood Count 4.88 M/mcL (4.19-5.50); Red Cell Distribution Width 17.7 % (11.5-14.5); White Blood Count 15.7 K/mcL (4.3-11.1)
[2021-03-26 01:13] LABS: BUN/Creatinine Ratio 71 (6-26); Blood Urea Nitrogen 57 mg/dL (6-20); Calcium 8.4 mg/dL (8.6-10.3); Carbon Dioxide 31 mEq/L (23-29); Chloride 98 mEq/L (98-107); Glucose 110 mg/dL (70-105); Magnesium 1.9 mg/dL (1.6-2.6); Osmolality,Calculated 292 (280-300); Potassium 4.9 mEq/L (3.5-5.1); Sodium 133 mEq/L (136-145); eGFR For African Americans > 60 (> 60); eGFR For Non-African Americans > 60 (> 60)
[2021-03-26] MEDS: Ipratropium 1 PUFF INHALER IH SCH ×6 (03:52→23:15)
[2021-03-26] MEDS: Insulin LISPRO 300 UNITS/3 ML VIAL SUBQ SCH ×4 (08:10→22:25)
[2021-03-26] MEDS: Isosorbide MONOnitrate (24 HR) 30 MG TAB.ER.24H PO SCH (08:28)
[2021-03-26] MEDS: *HR* LORazepam 0.5 MG TABLET PO PRN ×2 (08:28→17:15)
[2021-03-26] MEDS: lisinopriL 5 MG TABLET PO SCH (08:28)
[2021-03-26] MEDS: carvediloL 25 MG TABLET PO SCH ×2 (08:28→17:15)
[2021-03-26] MEDS: hydrALAZINE 25 MG TABLET PO SCH ×2 (08:28→17:15)
[2021-03-26] MEDS: Loratadine 10 MG TABLET PO SCH (08:28)
[2021-03-26] MEDS: Furosemide 40 MG TABLET PO SCH ×2 (08:28→17:15)
[2021-03-26] MEDS: *HR* Rivaroxaban 10 MG TABLET PO SCH (17:16)
[2021-03-27] MEDS: hydrALAZINE 25 MG TABLET PO SCH ×3 (01:07→16:39)
[2021-03-27] MEDS: Melatonin 3 MG TABLET PO PRN (01:07)
[2021-03-27] MEDS: *HR* LORazepam 0.5 MG TABLET PO PRN (01:17)
[2021-03-27] MEDS: Ipratropium 1 PUFF INHALER IH SCH ×6 (03:38→23:12)
[2021-03-27] MEDS: Isosorbide MONOnitrate (24 HR) 30 MG TAB.ER.24H PO SCH (07:35)
[2021-03-27] MEDS: lisinopriL 5 MG TABLET PO SCH (07:35)
[2021-03-27] MEDS: carvediloL 25 MG TABLET PO SCH ×2 (07:35→16:40)
[2021-03-27] MEDS: Furosemide 40 MG TABLET PO SCH ×2 (07:36→16:40)
[2021-03-27] MEDS: Insulin LISPRO 300 UNITS/3 ML VIAL SUBQ SCH ×4 (07:38→22:17)
[2021-03-27] MEDS: Loratadine 10 MG TABLET PO SCH (07:41)
[2021-03-27] MEDS: *HR* Rivaroxaban 10 MG TABLET PO SCH (16:40)
[2021-03-27] MEDS: Simethicone 80 MG TAB.CHEW PO PRN (16:50)
[2021-03-28] MEDS: Melatonin 3 MG TABLET PO PRN (01:15)
[2021-03-28] MEDS: hydrALAZINE 25 MG TABLET PO SCH ×3 (01:15→16:35)
[2021-03-28] MEDS: *HR* LORazepam 0.5 MG TABLET PO PRN (01:16)
[2021-03-28] MEDS: Ipratropium 1 PUFF INHALER IH SCH ×6 (03:53→23:30)
[2021-03-28] MEDS: Acetaminophen 325 MG TABLET PO PRN (06:37)
[2021-03-28] MEDS: carvediloL 25 MG TABLET PO SCH ×2 (07:34→16:34)
[2021-03-28] MEDS: Loratadine 10 MG TABLET PO SCH (07:35)
[2021-03-28] MEDS: lisinopriL 5 MG TABLET PO SCH (07:36)
[2021-03-28] MEDS: Furosemide 40 MG TABLET PO SCH ×2 (07:37→16:35)
[2021-03-28] MEDS: Isosorbide MONOnitrate (24 HR) 30 MG TAB.ER.24H PO SCH (07:38)
[2021-03-28] MEDS: Insulin LISPRO 300 UNITS/3 ML VIAL SUBQ SCH ×4 (08:00→20:00)
[2021-03-28] MEDS: *HR* Rivaroxaban 10 MG TABLET PO SCH (16:35)
[2021-03-29] MEDS: Melatonin 3 MG TABLET PO PRN ×2 (00:31→23:37)
[2021-03-29] MEDS: *HR* LORazepam 0.5 MG TABLET PO PRN ×2 (00:31→23:37)
[2021-03-29] MEDS: hydrALAZINE 25 MG TABLET PO SCH ×4 (00:31→23:37)
[2021-03-29] MEDS: Acetaminophen 325 MG TABLET PO PRN (03:47)
[2021-03-29] MEDS: Simethicone 80 MG TAB.CHEW PO PRN (03:47)
[2021-03-29] MEDS: Ipratropium 1 PUFF INHALER IH SCH ×6 (04:12→23:35)
[2021-03-29 07:00] LABS: BUN/Creatinine Ratio 42 (6-26); Blood Urea Nitrogen 25 mg/dL (6-20); Calcium 8.6 mg/dL (8.6-10.3); Carbon Dioxide 32 mEq/L (23-29); Chloride 102 mEq/L (98-107); Glucose 110 mg/dL (70-105); Osmolality,Calculated 291 (280-300); Potassium 4.4 mEq/L (3.5-5.1); Sodium 138 mEq/L (136-145); eGFR For African Americans > 60 (> 60); eGFR For Non-African Americans > 60 (> 60)
[2021-03-29] MEDS: lisinopriL 5 MG TABLET PO SCH (09:04)
[2021-03-29] MEDS: Loratadine 10 MG TABLET PO SCH (09:04)
[2021-03-29] MEDS: Isosorbide MONOnitrate (24 HR) 30 MG TAB.ER.24H PO SCH (09:04)
[2021-03-29] MEDS: Furosemide 40 MG TABLET PO SCH ×2 (09:04→16:30)
[2021-03-29] MEDS: carvediloL 25 MG TABLET PO SCH ×2 (09:05→16:30)
[2021-03-29] MEDS: Insulin LISPRO 300 UNITS/3 ML VIAL SUBQ SCH ×4 (09:06→21:45)
[2021-03-29] MEDS: *HR* Rivaroxaban 10 MG TABLET PO SCH (16:31)
[2021-03-30] MEDS: Ipratropium 1 PUFF INHALER IH SCH ×3 (04:01→11:19)
[2021-03-30] MEDS: carvediloL 25 MG TABLET PO SCH (07:14)
[2021-03-30] MEDS: Furosemide 40 MG TABLET PO SCH (07:14)
[2021-03-30] MEDS: Loratadine 10 MG TABLET PO SCH (07:14)
[2021-03-30] MEDS: hydrALAZINE 25 MG TABLET PO SCH (07:14)
[2021-03-30] MEDS: lisinopriL 5 MG TABLET PO SCH (07:14)
[2021-03-30] MEDS: Isosorbide MONOnitrate (24 HR) 30 MG TAB.ER.24H PO SCH (07:14)
[2021-03-30] MEDS: Insulin LISPRO 300 UNITS/3 ML VIAL SUBQ SCH ×2 (07:50→12:14)
[2021-03-30 11:21] VITALS: BP 172/111
== END 2021-03-30 15:39 | DRG 137 ==
LOC: EMEROOARM 20:52 → 2NENU 20:52 → SUATTDRO 03-08 15:16
PROVIDERS: ADMIT Internal Medicine; ATTEND Internal Medicine

== ENCOUNTER 2021-04-11 14:12 | Inpatient (IN) ==
[2021-04-11] MEDS ORDERED: 0.9 % Sodium Chloride 1,000 ML IVC ONE (17:19)
[2021-04-11 18:16] LABS: BUN/Creatinine Ratio 18 (6-26); Blood Urea Nitrogen 12 mg/dL (6-20); Calcium 8.9 mg/dL (8.6-10.3); Carbon Dioxide 31 mEq/L (23-29); Chloride 102 mEq/L (98-107); Glucose 129 mg/dL (70-105); Osmolality,Calculated 293 (280-300); Potassium 3.9 mEq/L (3.5-5.1); Sodium 141 mEq/L (136-145); eGFR For African Americans > 60 (> 60); eGFR For Non-African Americans > 60 (> 60)
[2021-04-11 18:17] LABS: Troponin I < 0.03 ng/mL (< 0.04)
[2021-04-11 19:27] LABS: Bilirubin,Urine Negative (Negative); Blood,Urine Negative (Negative); Clarity,Urine Clear (Clear); Color,Urine Light-Yellow (Yellow); Glucose,Urine (UA) Normal (Normal); Ketones,Urine Negative (Negative); Leukocyte Esterase,Urine Negative (Negative); Nitrite,Urine Negative (Negative); Protein,Urine Negative (Neg-Trace); Specific Gravity,Urine 1.016 (1.010-1.025); Urobilinogen,Urine Normal (Normal)
[2021-04-11] MEDS ORDERED: hydrALAZINE 25 MG TABLET PO SCH (20:30)
[2021-04-11] MEDS ORDERED: Naloxone 0.4 MG/ML INJ IVP PRN (20:37)
[2021-04-11] MEDS ORDERED: Ondansetron 4 MG/2 ML VIAL IVP PRN (20:37)
[2021-04-11 21:11] LABS: Basophils % 0.5 %; Eosinophils # 0.2 K/mcL (0.0-0.6); Hematocrit 35.7 % (37.5-50.1); Hemoglobin 10.6 g/dL (12.9-16.9); Immature Granulocytes % 3.2 % (0-4); Lymphocytes % 13.6 %; Mean Corpuscular HGB Conc 29.7 g/dL (31.6-35.5); Mean Corpuscular Hemoglobin 25.7 pg (28.0-33.3); Mean Corpuscular Volume 86.7 fL (83.0-100.0); Mean Platelet Volume 12.2 fL (9.4-12.4); Monocytes # 0.4 K/mcL (0.0-1.3); Monocytes % 5.9 %; Neutrophils # 5.4 K/mcL (1.6-8.9); Nucleated Red Blood Cells 0.8 /100 WBC (0); Platelet Count 206 K/mcL (140-400); Red Blood Count 4.12 M/mcL (4.19-5.50); Red Cell Distribution Width 21.7 % (11.5-14.5); Segmented Neutrophils % 73.8 %; White Blood Count 7.3 K/mcL (4.3-11.1)
[2021-04-12] MEDS: Furosemide 40 MG TABLET PO SCH ×3 (01:07→15:58)
[2021-04-12] MEDS: Melatonin 3 MG TABLET PO PRN (01:07)
[2021-04-12] MEDS: *HR* HYDROcodone/Acet 5/325 mg TABLET PO PRN (01:09)
[2021-04-12] MEDS: hydrALAZINE 25 MG TABLET PO SCH ×2 (07:34→15:59)
[2021-04-12] MEDS: lisinopriL 5 MG TABLET PO SCH (07:35)
[2021-04-12] MEDS: Isosorbide MONOnitrate (24 HR) 30 MG TAB.ER.24H PO SCH (07:35)
[2021-04-12 11:19] LABS: Basophils % 0.4 %; Lymphocytes % 9.2 %
[2021-04-12 11:21] LABS: Eosinophils # 0.2 K/mcL (0.0-0.6); Eosinophils % 2.6 %; Hematocrit 36.1 % (37.5-50.1); Hemoglobin 10.8 g/dL (12.9-16.9); Immature Granulocytes % 2.1 % (0-4); Lymphocytes # 0.7 K/mcL (0.6-4.6); Mean Corpuscular HGB Conc 29.9 g/dL (31.6-35.5); Mean Corpuscular Hemoglobin 25.5 pg (28.0-33.3); Mean Corpuscular Volume 85.3 fL (83.0-100.0); Mean Platelet Volume 11.1 fL (9.4-12.4); Monocytes # 0.6 K/mcL (0.0-1.3); Monocytes % 8.2 %; Neutrophils # 5.6 K/mcL (1.6-8.9); Nucleated Red Blood Cells 0.4 /100 WBC (0); Platelet Count 205 K/mcL (140-400); Red Blood Count 4.23 M/mcL (4.19-5.50); Red Cell Distribution Width 21.9 % (11.5-14.5); Segmented Neutrophils % 77.5 %; White Blood Count 7.2 K/mcL (4.3-11.1)
[2021-04-12] MEDS: carvediloL 25 MG TABLET PO SCH (15:58)
[2021-04-12] MEDS: *HR* Rivaroxaban 10 MG TABLET PO SCH (15:59)
[2021-04-13] MEDS: *HR* HYDROcodone/Acet 5/325 mg TABLET PO PRN ×3 (00:38→23:39)
[2021-04-13] MEDS: Melatonin 3 MG TABLET PO PRN ×2 (00:39→23:41)
[2021-04-13] MEDS: hydrALAZINE 25 MG TABLET PO SCH ×4 (00:39→23:38)
[2021-04-13] MEDS: Isosorbide MONOnitrate (24 HR) 30 MG TAB.ER.24H PO SCH (08:26)
[2021-04-13] MEDS: carvediloL 25 MG TABLET PO SCH ×2 (08:26→16:20)
[2021-04-13] MEDS: lisinopriL 5 MG TABLET PO SCH (08:26)
[2021-04-13] MEDS: Furosemide 40 MG TABLET PO SCH ×2 (08:26→16:20)
[2021-04-13] MEDS: *HR* Rivaroxaban 10 MG TABLET PO SCH (16:19)
[2021-04-14 02:22] LABS: Basophils % 0.4 %; Eosinophils # 0.1 K/mcL (0.0-0.6); Eosinophils % 1.8 %; Hematocrit 32.4 % (37.5-50.1); Hemoglobin 9.7 g/dL (12.9-16.9); Immature Granulocytes % 1.9 % (0-4); Lymphocytes # 0.8 K/mcL (0.6-4.6); Mean Corpuscular HGB Conc 29.9 g/dL (31.6-35.5); Mean Corpuscular Hemoglobin 25.7 pg (28.0-33.3); Mean Corpuscular Volume 85.7 fL (83.0-100.0); Mean Platelet Volume 11.6 fL (9.4-12.4); Monocytes # 0.6 K/mcL (0.0-1.3); Monocytes % 9.6 %; Neutrophils # 4.1 K/mcL (1.6-8.9); Platelet Count 188 K/mcL (140-400); Red Blood Count 3.78 M/mcL (4.19-5.50); Red Cell Distribution Width 22.1 % (11.5-14.5); Segmented Neutrophils % 72.3 %; White Blood Count 5.7 K/mcL (4.3-11.1)
[2021-04-14 02:34] LABS: BUN/Creatinine Ratio 17 (6-26); Blood Urea Nitrogen 12 mg/dL (6-20); Calcium 8.8 mg/dL (8.6-10.3); Carbon Dioxide 38 mEq/L (23-29); Chloride 99 mEq/L (98-107); Glucose 148 mg/dL (70-105); Osmolality,Calculated 295 (280-300); Potassium 3.7 mEq/L (3.5-5.1); Sodium 141 mEq/L (136-145); eGFR For African Americans > 60 (> 60); eGFR For Non-African Americans > 60 (> 60)
[2021-04-14] MEDS: hydrALAZINE 25 MG TABLET PO SCH ×2 (08:09→15:47)
[2021-04-14] MEDS: carvediloL 25 MG TABLET PO SCH ×2 (08:09→16:53)
[2021-04-14] MEDS: Furosemide 40 MG TABLET PO SCH ×2 (08:09→16:53)
[2021-04-14] MEDS: Isosorbide MONOnitrate (24 HR) 30 MG TAB.ER.24H PO SCH (08:09)
[2021-04-14] MEDS: lisinopriL 5 MG TABLET PO SCH (08:10)
[2021-04-14] MEDS ORDERED: *HR* Heparin 5,000 UNIT/ML VIAL IVP PRN (10:16)
[2021-04-14] MEDS ORDERED: *HR* Heparin 5,000 UNIT/ML VIAL IVP ONE (10:16)
[2021-04-14] MEDS ORDERED: Heparin 25,000UNIT/250ML 1/2NS 25,000 UNIT/250 ML IV.SOLN IVC SCH (10:30)
[2021-04-14 11:14] LABS: Hematocrit 34.4 % (37.5-50.1); Hemoglobin 10.2 g/dL (12.9-16.9); Mean Corpuscular HGB Conc 29.7 g/dL (31.6-35.5); Mean Corpuscular Hemoglobin 25.4 pg (28.0-33.3); Mean Corpuscular Volume 85.8 fL (83.0-100.0); Mean Platelet Volume 11.2 fL (9.4-12.4); Platelet Count 197 K/mcL (140-400); Red Blood Count 4.01 M/mcL (4.19-5.50); White Blood Count 6.5 K/mcL (4.3-11.1)
[2021-04-14 11:22] LABS: Heparin anti-factor XA UFH 0.08 IU/mL (0.30-0.70)
[2021-04-14 11:23] LABS: INR 1.2; Prothrombin Time 13.6 Seconds (9.4-12.1)
[2021-04-14 11:48] LABS: Activated Partial Thrombo Time 31.8 Seconds (26.0-36.0)
[2021-04-14] MEDS: Heparin 25,000UNIT/250ML 1/2NS 25,000 UNIT/250 ML IV.SOLN IVC SCH ×2 (12:14→21:14)
[2021-04-15] MEDS: hydrALAZINE 25 MG TABLET PO SCH ×3 (00:31→19:12)
[2021-04-15 00:55] LABS: Basophils % 0.5 %; Eosinophils # 0.1 K/mcL (0.0-0.6); Eosinophils % 1.4 %; Hematocrit 33.8 % (37.5-50.1); Hemoglobin 10.1 g/dL (12.9-16.9); Lymphocytes % 12.9 %; Mean Corpuscular HGB Conc 29.9 g/dL (31.6-35.5); Mean Corpuscular Hemoglobin 25.6 pg (28.0-33.3); Mean Corpuscular Volume 85.8 fL (83.0-100.0); Mean Platelet Volume 11.2 fL (9.4-12.4); Monocytes # 0.6 K/mcL (0.0-1.3); Neutrophils # 5.7 K/mcL (1.6-8.9); Nucleated Red Blood Cells 0.3 /100 WBC (0); Platelet Count 184 K/mcL (140-400); Red Blood Count 3.94 M/mcL (4.19-5.50); Red Cell Distribution Width 22.3 % (11.5-14.5); Segmented Neutrophils % 75.2 %; White Blood Count 7.6 K/mcL (4.3-11.1)
[2021-04-15 01:11] LABS: BUN/Creatinine Ratio 18 (6-26); Blood Urea Nitrogen 14 mg/dL (6-20); Calcium 8.8 mg/dL (8.6-10.3); Carbon Dioxide 38 mEq/L (23-29); Chloride 99 mEq/L (98-107); Glucose 151 mg/dL (70-105); Osmolality,Calculated 295 (280-300); Sodium 141 mEq/L (136-145); eGFR For African Americans > 60 (> 60); eGFR For Non-African Americans > 60 (> 60)
[2021-04-15] MEDS: *HR* Heparin 5,000 UNIT/ML VIAL IVP PRN ×2 (01:21→19:12)
[2021-04-15] MEDS: Melatonin 3 MG TABLET PO PRN (01:25)
[2021-04-15] MEDS: *HR* HYDROcodone/Acet 5/325 mg TABLET PO PRN (01:26)
[2021-04-15] MEDS: Heparin 25,000UNIT/250ML 1/2NS 25,000 UNIT/250 ML IV.SOLN IVC SCH ×3 (05:58→15:05)
[2021-04-15] MEDS: Furosemide 40 MG TABLET PO SCH ×2 (08:26→19:12)
[2021-04-15] MEDS: lisinopriL 5 MG TABLET PO SCH (08:26)
[2021-04-15] MEDS: carvediloL 25 MG TABLET PO SCH ×2 (08:26→19:11)
[2021-04-15] MEDS: Isosorbide MONOnitrate (24 HR) 30 MG TAB.ER.24H PO SCH (08:26)
[2021-04-16 00:27] LABS: Basophils # 0.1 K/mcL (0.0-0.2); Basophils % 0.7 %; Eosinophils # 0.1 K/mcL (0.0-0.6); Eosinophils % 1.7 %; Hematocrit 35.5 % (37.5-50.1); Hemoglobin 10.4 g/dL (12.9-16.9); Lymphocytes % 12.1 %; Mean Corpuscular HGB Conc 29.3 g/dL (31.6-35.5); Mean Corpuscular Hemoglobin 25.1 pg (28.0-33.3); Mean Corpuscular Volume 85.7 fL (83.0-100.0); Monocytes # 0.7 K/mcL (0.0-1.3); Monocytes % 8.8 %; Neutrophils # 6.1 K/mcL (1.6-8.9); Platelet Count 203 K/mcL (140-400); Red Blood Count 4.14 M/mcL (4.19-5.50); Red Cell Distribution Width 22.2 % (11.5-14.5); Segmented Neutrophils % 73.7 %; White Blood Count 8.2 K/mcL (4.3-11.1)
[2021-04-16] MEDS: Heparin 25,000UNIT/250ML 1/2NS 25,000 UNIT/250 ML IV.SOLN IVC SCH ×2 (00:31→12:47)
[2021-04-16 00:46] LABS: BUN/Creatinine Ratio 19 (6-26); Blood Urea Nitrogen 16 mg/dL (6-20); Calcium 9.2 mg/dL (8.6-10.3); Carbon Dioxide 38 mEq/L (23-29); Chloride 97 mEq/L (98-107); Glucose 117 mg/dL (70-105); Osmolality,Calculated 292 (280-300); Potassium 4.1 mEq/L (3.5-5.1); Sodium 140 mEq/L (136-145); eGFR For African Americans > 60 (> 60); eGFR For Non-African Americans > 60 (> 60)
[2021-04-16] MEDS: hydrALAZINE 25 MG TABLET PO SCH ×3 (02:05→19:53)
[2021-04-16] MEDS: *HR* HYDROcodone/Acet 5/325 mg TABLET PO PRN (02:07)
[2021-04-16] MEDS: Melatonin 3 MG TABLET PO PRN (02:07)
[2021-04-16] MEDS: lisinopriL 5 MG TABLET PO SCH (08:25)
[2021-04-16] MEDS: Isosorbide MONOnitrate (24 HR) 30 MG TAB.ER.24H PO SCH (08:25)
[2021-04-16] MEDS: carvediloL 25 MG TABLET PO SCH ×2 (08:25→17:34)
[2021-04-16] MEDS: Furosemide 40 MG TABLET PO SCH ×2 (08:25→17:34)
[2021-04-16] MEDS: Apixaban 5 MG TABLET PO SCH (17:33)
[2021-04-17] MEDS: hydrALAZINE 25 MG TABLET PO SCH ×3 (02:51→19:11)
[2021-04-17 06:50] LABS: Basophils # 0.1 K/mcL (0.0-0.2); Basophils % 0.6 %; Eosinophils # 0.1 K/mcL (0.0-0.6); Eosinophils % 1.3 %; Hematocrit 35.6 % (37.5-50.1); Hemoglobin 10.6 g/dL (12.9-16.9); Immature Granulocytes % 2.4 % (0-4); Lymphocytes # 0.8 K/mcL (0.6-4.6); Mean Corpuscular HGB Conc 29.8 g/dL (31.6-35.5); Mean Corpuscular Hemoglobin 25.6 pg (28.0-33.3); Mean Platelet Volume 11.2 fL (9.4-12.4); Monocytes # 0.7 K/mcL (0.0-1.3); Monocytes % 8.8 %; Neutrophils # 6.5 K/mcL (1.6-8.9); Platelet Count 201 K/mcL (140-400); Red Blood Count 4.14 M/mcL (4.19-5.50); Red Cell Distribution Width 22.5 % (11.5-14.5); Segmented Neutrophils % 77.9 %; White Blood Count 8.4 K/mcL (4.3-11.1)
[2021-04-17 07:03] LABS: BUN/Creatinine Ratio 20 (6-26); Blood Urea Nitrogen 16 mg/dL (6-20); Calcium 9.2 mg/dL (8.6-10.3); Carbon Dioxide 37 mEq/L (23-29); Chloride 98 mEq/L (98-107); Glucose 161 mg/dL (70-105); Osmolality,Calculated 295 (280-300); Sodium 140 mEq/L (136-145); eGFR For African Americans > 60 (> 60); eGFR For Non-African Americans > 60 (> 60)
[2021-04-17] MEDS: Apixaban 5 MG TABLET PO SCH ×2 (11:35→21:24)
[2021-04-17] MEDS: Isosorbide MONOnitrate (24 HR) 30 MG TAB.ER.24H PO SCH (11:35)
[2021-04-17] MEDS: lisinopriL 5 MG TABLET PO SCH (11:35)
[2021-04-17] MEDS: Furosemide 40 MG TABLET PO SCH ×2 (11:35→18:39)
[2021-04-17] MEDS: carvediloL 25 MG TABLET PO SCH ×2 (11:35→18:38)
[2021-04-18] MEDS: *HR* HYDROcodone/Acet 5/325 mg TABLET PO PRN (01:55)
[2021-04-18] MEDS: Melatonin 3 MG TABLET PO PRN (01:55)
[2021-04-18] MEDS: hydrALAZINE 25 MG TABLET PO SCH ×3 (01:56→16:28)
[2021-04-18] MEDS: carvediloL 25 MG TABLET PO SCH ×2 (08:31→16:36)
[2021-04-18] MEDS: Furosemide 40 MG TABLET PO SCH ×2 (08:32→16:36)
[2021-04-18] MEDS: Isosorbide MONOnitrate (24 HR) 30 MG TAB.ER.24H PO SCH (08:32)
[2021-04-18] MEDS: lisinopriL 5 MG TABLET PO SCH (08:32)
[2021-04-18] MEDS: Apixaban 5 MG TABLET PO SCH ×2 (08:32→21:43)
[2021-04-18 09:08] LABS: Basophils % 0.7 %
[2021-04-18 09:09] LABS: Basophils # 0.1 K/mcL (0.0-0.2); Eosinophils # 0.1 K/mcL (0.0-0.6); Hematocrit 39.2 % (37.5-50.1); Hemoglobin 11.7 g/dL (12.9-16.9); Immature Granulocytes % 2.7 % (0-4); Lymphocytes % 10.2 %; Mean Corpuscular HGB Conc 29.8 g/dL (31.6-35.5); Mean Corpuscular Hemoglobin 25.9 pg (28.0-33.3); Mean Corpuscular Volume 86.7 fL (83.0-100.0); Monocytes # 0.8 K/mcL (0.0-1.3); Monocytes % 8.3 %; Neutrophils # 7.7 K/mcL (1.6-8.9); Platelet Count 227 K/mcL (140-400); Red Blood Count 4.52 M/mcL (4.19-5.50); Red Cell Distribution Width 22.3 % (11.5-14.5); Segmented Neutrophils % 77.1 %
[2021-04-18 09:30] LABS: BUN/Creatinine Ratio 24 (6-26); Blood Urea Nitrogen 18 mg/dL (6-20); Calcium 9.4 mg/dL (8.6-10.3); Carbon Dioxide 35 mEq/L (23-29); Chloride 99 mEq/L (98-107); Glucose 111 mg/dL (70-105); Osmolality,Calculated 291 (280-300); Potassium 4.7 mEq/L (3.5-5.1); Sodium 139 mEq/L (136-145); eGFR For African Americans > 60 (> 60); eGFR For Non-African Americans > 60 (> 60)
[2021-04-18 09:33] LABS: Platelet Estimate Normal (Normal); Polychromasia 1+ (Not Present)
[2021-04-18 09:34] LABS: Anisocytosis 1+ (Not Present)
[2021-04-19] MEDS: hydrALAZINE 25 MG TABLET PO SCH ×3 (01:59→17:02)
[2021-04-19] MEDS: Melatonin 3 MG TABLET PO PRN (02:03)
[2021-04-19] MEDS: *HR* HYDROcodone/Acet 5/325 mg TABLET PO PRN (02:03)
[2021-04-19] MEDS: lisinopriL 5 MG TABLET PO SCH (08:38)
[2021-04-19] MEDS: carvediloL 25 MG TABLET PO SCH ×2 (08:38→17:02)
[2021-04-19] MEDS: Furosemide 40 MG TABLET PO SCH ×2 (08:38→17:02)
[2021-04-19] MEDS: Isosorbide MONOnitrate (24 HR) 30 MG TAB.ER.24H PO SCH (08:39)
[2021-04-19] MEDS: Apixaban 5 MG TABLET PO SCH ×2 (08:39→19:48)
[2021-04-20] MEDS: hydrALAZINE 25 MG TABLET PO SCH ×2 (02:15→09:50)
[2021-04-20] MEDS: *HR* HYDROcodone/Acet 5/325 mg TABLET PO PRN (04:23)
[2021-04-20] MEDS: Furosemide 40 MG TABLET PO SCH (09:49)
[2021-04-20] MEDS: Apixaban 5 MG TABLET PO SCH (09:49)
[2021-04-20] MEDS: carvediloL 25 MG TABLET PO SCH (09:49)
[2021-04-20] MEDS: lisinopriL 5 MG TABLET PO SCH (09:49)
[2021-04-20] MEDS: Isosorbide MONOnitrate (24 HR) 30 MG TAB.ER.24H PO SCH (09:49)
[2021-04-20 12:21] VITALS: BP 106/64
== END 2021-04-20 13:30 | DRG 134 ==
LOC: 3BNU 14:12 → EMEROOARM 14:12 → SUATTDRO 22:42 → 3NENU 23:38
PROVIDERS: ADMIT Family Medicine; ATTEND Family Medicine